=== PATIENT | male | born 1970 | race Hispanic/Latino ===

== ENCOUNTER 2019-08-04 22:27 | Inpatient (IN) ==
[2019-08-04 23:00] LABS: BASO# 0.04 X1000 (0.0-0.2); BASO% 0.4 % (0.0-0.8); EOS# 0.02 X1000 (0.0-0.7); EOS% 0.2 % (0.0-10.0); HEMATOCRIT 25.9 % (42.0-52.0); HEMOGLOBIN 8.6 g/dL (14.0-18.0); IMM GRAN# 0.18 X1000 (0.0-0.04); IMM GRAN% 1.8 % (0.0-0.5); LYMPH# 1.01 X1000 (1.2-3.4); LYMPH% 9.9 % (20.5-51.1); MCHC 33.2 g/dL (33-37); MCV 90.2 FL (81-99); MONO# 2.46 X1000 (0.11-0.59); MONO% 24.1 % (1.7-9.3); MPV 10.4 FL (7.4-10.4); NEUT% 63.6 % (42.2-75.2); PLT 183 X1000 (130-400); RBC 2.87 XMIL (4.7-6.1); RDW 17.8 % (11.5-14.5); WBC 10.21 X1000 (4.8-10.8)
[2019-08-04 23:01] LABS: BUN 5 mg/dL (8-22); CHLORIDE 77 mmol/L (98-107); MAGNESIUM 1.5 mg/dL (1.5-2.7); TCO2 17 mmol/L (25-35); TOTAL PROTEIN 7.3 g/dL (6.3-8.3)
[2019-08-04 23:08] LABS: URINE SOURCE CLEAN CATCH
[2019-08-04 23:11] LABS: BILIRUBIN URINE SMALL (NEGATIVE); BLOOD URINE NEGATIVE (NEGATIVE); COLOR YELLOW; GLUCOSE URINE NEGATIVE (NEGATIVE); KETONE URINE 20 mg/dL (NEGATIVE); LEUKOCYTES URINE NEGATIVE (NEGATIVE); NITRITE URINE NEGATIVE (NEGATIVE); PH URINE 6.5; PROTEIN URINE TRACE mg/dL (NEGATIVE); SP GRAVITY URINE 1.019; TURBIDITY URINE CLEAR (CLEAR); UROBILINOGEN URINE 6 mg/dL (NORMAL)
[2019-08-04 23:22] LABS: CK-MB 11.74 ng/mL (0.0-5.0)
[2019-08-04 23:44] LABS: AGAP 14; ALBUMIN 2.4 g/dL (3.5-5.0); ALKALINE PHOSPHATASE 94 U/L (32-122); CALCIUM 7.7 mg/dL (8.8-10.2); CK INDEX 4.6 (0.0-2.5); CK PROFILE 256 U/L (24-204); COSMO 218; CREATININE 0.2 mg/dL (0.7-1.2); ESTIMATED GFR > 60; GLUCOSE 122 mg/dL (70-104); GOT 128 U/L (10-34); GPT 38 U/L (10-44); POTASSIUM 3.9 mmol/L (3.5-5.1)
[2019-08-04 23:45] LABS: UR EPITHELIAL CELLS <10 /HPF (<10); URINE BACTERIA 2+ /HPF; URINE CASTS GRANULAR PRESENT; URINE CRYSTALS CA OXALATE PRESENT; URINE SMALL ROUND CELLS NONE SEEN; URINE WBC <10 /HPF (<10); URINE YEAST NONE SEEN
--- NOTE | 2019-08-05 00:10 | EKG Report ---
Test Performed on : 08/04/2019 10:21:58 PM Test Reason : emboli Blood Pressure : / mmHG Vent. Rate : 097 BPM Atrial Rate : 097 BPM P-R Int : 178 ms QRS Dur : 078 ms QT Int : 368 ms P-R-T Axes : 049 013 007 degrees QTc Int : 467 ms Normal sinus rhythm. Normal ECG No previous ECGs available Unconfirmed Result
[2019-08-05] MEDS ORDERED: LASIX PO ONE (00:14)
[2019-08-05 00:22] LABS: SODIUM 108 mmol/L (136-145)
--- NOTE | 2019-08-05 00:26 | PROVIDER DOCUMENTATION ---
This chart was entered by Carole Mcpherson Scribe, acting as scribe for Dandy Norwood MD. HPI-General Adult - General Stated Complaint: SOB Time Seen by Provider: 08/04/19 22:05 Source: patient, EMS Allergies/Adverse Reactions: Patient Allergies Allergy/AdvReac Type Severity Reaction Status Date / Time No Known Allergies Allergy Verified 04/19/14 09:02 Home Medications: Home Medication List Medication Instructions Recorded Confirmed Last Taken Type NK [No Home Medications] 08/04/19 08/04/19 Unknown History - History of Present Illness -Gen Adult Nature of Presenting Problems: pt is a 49 yohm c/o sob and poor appetite for 2 weeks, chronic LE edema and umbilical hernia becoming worse last few days. pt has hx alcoholism, drinks 6 or more beers daily, no hard liquor. pt also c/o left eye matted. denies IA, CKD, DM and hep B & C. no o2 at home. pt is morbidly obese. denies smoking. denies diarrhea, fever and chills. pt is jaundice in room. Severity: reports: moderate Onset/Duration: reports: other (2 weeks sob and poor appetite, chronic LE edema and umbilical hernia becoming worse last few days and L eye matted unk amt of time) Timing: reports: still present Context/Activities at Onset: reports: none Modifying Factors: improves with: nothing Associated Symptoms: reports: cough, loss of appetite, shortness of breath, swelling/mass in abdomen (umbilical hernia), other (left eye matted). denies: diarrhea, fever/chills, vomiting Review of Systems - Adult - REVIEW OF SYSTEMS - ADULT Constitutional: reports: no symptoms reported. denies: fever, fatique, night sweats Eyes: reports: see HPI, discharge (left eye matted). denies: decreased vision, blurred vision, double vision Ears, Nose, Mouth & Throat: reports: no symptoms reported Cardiovascular: reports: no symptoms reported Respiratory: reports: see HPI, cough, shortness of breath. denies: dyspnea on exertion, excessive sputum production, hemoptysis Gastrointestinal: reports: see HPI, poor appetite, other (umb hernia becoming larger). denies: diarrhea, nausea, vomiting Genitourinary: reports: no symptoms reported Musculoskeletal: reports: see HPI, joint swelling (chronic bilat LE edema becoming worse last few days). denies: frequent leg cramps, joint pain, muscle weakness Integumentary: reports: no symptoms reported Neurological: reports: no symptoms reported Psychiatric: reports: no symptoms reported Endocrine: reports: no symptoms reported Hematologic/Lymphatic: reports: no symptoms reported Allergic/Immunologic: reports: no symptoms reported All Other Systems: Reviewed and Negative Past History - Adult - PAST MEDICAL HISTORY-ADULT Review of Records: reports: Nursing Assessment Review, Medications Reviewed, Social history reviewed & non-contributory. Major Childhood Illnesses: reports: denies history Cardiovascular: reports: hyperlipidemia Respiratory: reports: denies history Gastrointestinal: reports: denies history Obstetrical/Gynecological: reports: denies history Genitourinary: reports: denies history Musculoskeletal: reports: other (gout) Neurological: reports: denies history Endocrine/Immune: reports: denies history Other Conditions: reports: denies history - PRIOR SURGERIES/PROCEDURES Surgical/Procedure History: reports: other - IMMUNIZATION STATUS Childhood Immunizations: See Nurse Assessment Flu Vaccine: See Nurse Assessment - FAMILY HISTORY Family History: reviewed, not pertinent - SOCIAL HISTORY Smoking: non-smoker Substance Use: alcohol Alcohol Use Frequency: every day Number of drinks per typical drinking period:: 5-10 drinks Physical Exam-General - PHYSICAL EXAM-ADULT Initial Vital Signs Reviewed: Yes - CONSTITUTIONAL General Appearance: alert, no apparent distress, obese (morbidly). negative: cachetic, lethargic, slow to respond - EYES Eyes: PERRL/EOMI, subconjunctival hemorrhage (rt eye), other (matted left eye) - HEAD, EARS, NOSE, MOUTH & THROAT HENMT: normocephalic/atraumatic, dental decay. negative: moist mucous membranes (dry muc mems) - NECK Neck: non-tender, full range of motion, supple, normal inspection - RESPIRATORY Respiratory: chest non-tender, lungs clear, normal breath sounds, no pleuratic chest pain, no respiratory distress, no accessory muscle use. negative: respiratory distress, decreased breath sounds, accessory muscle use, wheezing - CARDIOVASCULAR Cardiovascular: normal peripheral pulses, regular rate, rhythm - GASTROINTESTINAL (ABDOMEN) Abdominal Exam: normal bowel sounds, non tender, soft, no organomegaly, no pulsatile mass, hernia (large umbilical hernia). negative: abnormal bowel sounds, distended, guarding - MUSCULOSKELETAL Back Exam: normal inspection Extremity: normal range of motion, non-tender, no calf tenderness, normal capillary refill, pelvis stable, swelling (chronic bilat LE edema). negative: normal inspection, deformity, erythema, tenderness - SKIN Integumentary: normal turgor, warm/dry, jaundice, petechiae (on face), other (bruises on bilat UE). negative: normal color, erythema, rash - NEUROLOGIC Neurologic: grossly normal, no motor/sensory deficits - PSYCHIATRIC Psych/Mental Status: normal mood/affect, normal thought content, normal thought process, oriented x 3 Progress - PLAN OF CARE/RESULTS Result Diagrams: 08/04/19 22:24 08/04/19 22:24 - EKG 1 Time of EKG reading by physician:: 22:23 EKG Read and Signed by:: Dandy Norwood EKG Interpretation (*Must complete 3 of following elements*): Abnormal Rate: 96 Rhythm: NSR Dixon: normal QRS: normal FL Interval: normal ST Wave: normal Comments: cannot rule out inferior infarct, age undetermined - CONSULTS/PCP/HOSPITALIST Notification #1 *Consult/PCP/Hospitalist*: Luis Time Discussed: 23:55 Consult Disposition: Admit Departure - Departure Date of Disposition Decision: 08/05/19 Time of Disposition Decision: 00:06 DIAGNOSIS: Hypernatremia Liver failure Qualifiers: Liver failure chronicity: acute Hepatic coma status: without hepatic coma Qualified Code(s): K72.00 - Acute and subacute hepatic failure without coma Disposition: ADMITTED INPATIENT 09 Certified Medical Emergency: Emergent Condition: Stable Referrals and Follow-Ups: Doctor,Unassigned [Primary Care Provider] - - Critical Care Note This patient required my direct & personal management of CC.: Yes Total Time (mins): 30 Critical Care Statement: This patient required my direct personal management to treat or rule out processes, the absence of which, could potentiallly result in sudden, clinically significant life or limb threatening deterioration. Attestation - Physician/ TEVIN Attestation Patient care was provided by Advanced Practice Provider:: No The physician spent face to face time with patient:: Yes Advanced Practice Provider documentation review:: Supervising physician onsite and consulted in the evaluation and care of this patient. The physician did have a face to face encounter with the patient. This chart was documented by the indicated scribe, (Carole Mcpherson, [email or web address]) and accurately reflects the services I performed and decisions made by me, Dandy Conti MD, as attested by the provider's signature.
[2019-08-05] MEDS: LACTULOSE PO SCH ×4 (01:09→19:33)
[2019-08-05] MEDS ORDERED: NS 1,000 ML IV ONE (01:37)
[2019-08-05] MEDS ORDERED: ZOFRAN IV PRN (03:06)
[2019-08-05] MEDS ORDERED: NS 1,000 ML IV SCH (03:06)
--- NOTE | 2019-08-05 06:31 | Diag Imaging Result Doc PS360 ---
CHEST-PORTABLE - 08/04/2019 INDICATION: sob COMPARISON: None FINDINGS: There are some faint infiltrate or atelectasis in the left midlung and lung base. Heart size is normal. No pneumothorax or pleural effusion. IMPRESSION: Faint nonspecific infiltrate/atelectasis in the left midlung and lung base. Electronically signed by Stanley Saenz 08/05/2019 6:28 AM
[2019-08-05 06:35] LABS: BASO# 0.04 X1000 (0.0-0.2); BASO% 0.4 % (0.0-0.8); EOS# 0.02 X1000 (0.0-0.7); EOS% 0.2 % (0.0-10.0); HEMATOCRIT 24.6 % (42.0-52.0); HEMOGLOBIN 8.3 g/dL (14.0-18.0); IMM GRAN# 0.12 X1000 (0.0-0.04); IMM GRAN% 1.3 % (0.0-0.5); LYMPH# 1.09 X1000 (1.2-3.4); LYMPH% 12.1 % (20.5-51.1); MCH 30.7 PG (27-31); MCHC 33.7 g/dL (33-37); MCV 91.1 FL (81-99); MONO# 2.55 X1000 (0.11-0.59); MONO% 28.2 % (1.7-9.3); MPV 9.8 FL (7.4-10.4); NEUT# 5.21 X1000 (1.4-6.5); NEUT% 57.8 % (42.2-75.2); PLT 170 X1000 (130-400); RDW 17.5 % (11.5-14.5); WBC 9.03 X1000 (4.8-10.8)
[2019-08-05 06:44] LABS: INR 2.25; PROTIME 25.4 Seconds (11.0-16.0)
[2019-08-05 06:45] LABS: PTT 41.9 Seconds (22.3-41.8)
[2019-08-05 07:28] LABS: LYMPHS 12 % (21-51); MONO 16 % (1-9); SEGS 72 % (42-75)
[2019-08-05 07:35] LABS: AGAP 14; ALB/GLOB RATIO 0.5; ALBUMIN 2.3 g/dL (3.5-5.0); ALKALINE PHOSPHATASE 87 U/L (32-122); BUN 6 mg/dL (8-22); CALCIUM 7.7 mg/dL (8.8-10.2); CHLORIDE 78 mmol/L (98-107); COSMO 220; CREATININE 0.4 mg/dL (0.7-1.2); ESTIMATED GFR > 60; GLUCOSE 107 mg/dL (70-104); GOT 123 U/L (10-34); GPT 37 U/L (10-44); IRON SATURATION 46 %; MAGNESIUM 1.5 mg/dL (1.5-2.7); POTASSIUM 3.9 mmol/L (3.5-5.1); TCO2 17 mmol/L (25-35); TIBC 168 ug/dL; TOTAL BILIRUBIN 10.05 mg/dL (0.20-1.00); TOTAL IRON 78 ug/dL (53-167); UNBOUND IRON 90 ug/dL (112-346)
[2019-08-05 07:37] LABS: SODIUM 109 mmol/L (136-145)
--- NOTE | 2019-08-05 07:38 | HISTORY AND PHYSICAL ---
PRIMARY CARE PROVIDER: None. CHIEF COMPLAINT: Does not remember. HISTORY OF PRESENT ILLNESS: Mr. Delacruz is a 49-year-old gentleman, who carries a past medical history of hyperlipidemia, morbid obesity, alcohol abuse, umbilical hernia, gout, and GERD, who was brought to [facility] via EMS for shortness of breath, poor appetite for 2 weeks, and chronic lower extremity edema and an umbilical hernia that has become worse over the last few day. He drinks 10 to 12 beers per day, has done so for more than 20 years. He reports that his left eye has been matted for greater than 8 months. He does have a jaundice appearance. He is edematous from his lower extremities up to the top of his abdomen. Workup at [facility] ED showed some anemia, severe hyponatremia 108, hypochloridemia, hypocalcemia, and T bilirubin of 9, AST of 128, ammonia level of 81 and an albumin of 2.4. He was transferred over to [facility] ICU for higher level of care for his hyponatremia as well as alcoholic liver failure. The patient is currently alert and oriented times three, could not exactly give me the correct year, but he does know his name. He knows his date of and he knows his at the bedside. He knows he is in [place] at [facility]. He is being admitted for further treatment and evaluation. PAST MEDICAL HISTORY: Hyperlipidemia, gout, GERD, morbid obesity with a body mass index of 62.7, alcoholism, umbilical hernia. PAST SURGICAL HISTORY: Nose surgery, some type of testicle surgery so he could have children. ALLERGIES: No known drug allergies. HOME MEDICATION: He reports just occasional goyo-sce-liebikg headache medicines. SOCIAL HISTORY: He is , at bedside. He drinks 10 to 12 beers per day and has done so for 20 years. No illicit drug use. No marijuana. No tobacco. No vaping. FAMILY HISTORY: Denies any coronary disease. No diabetes. No cancer. Brother with high cholesterol as well. REVIEW OF SYSTEMS: He denies any chest pain or shortness of breath; however, he does seem like he is having an issue with breathing. However, he is oxygenating well on room air. He does not know if he has had any fever or chills. No dysuria or frequency. No nausea, vomiting, or diarrhea. However, when he initially came in, his chief complaint was shortness of breath, chronic lower extremity edema, umbilical hernia, and poor appetite as well as left matted eye. PHYSICAL EXAMINATION: VITAL SIGNS: Temperature is 98 degrees, heart rate 100, respirations 18, blood pressure 119/73, O2 is 99% on room air. GENERAL: Mr. Delacruz is a 49-year-old male who is lying in the bed in no acute distress. HEENT: Atraumatic, normocephalic. PERRL, his left eye is matted. Does have a jaundice appearance. NECK: Thick. CARDIOVASCULAR: S1, S2 appreciated. No murmurs, gallops, rubs noted. RESPIRATORY: Lung sounds clear bilaterally, decreased in the bases. GI: Did appreciate pitting edema from the top of the belly around to flanks. He is sore around his umbilical hernia. He denies any right upper quadrant pain. Quiet bowel sounds. : He is draining tea-colored urine from his Archer. EXTREMITIES: Pitting edema up all the way to the top of his abdomen and flanks. SKIN: Jaundice NEUROLOGIC: The patient is awake. He is alert. He knows his name and date of . He knows the city. He knows his . He knows he is in the hospital. He did not recall the current year exactly. He did not remember what brought him to the hospital. Did not appreciate any focal deficits. LABORATORY DATA: White count 10, hemoglobin and hematocrit 8 and 25, platelet count is 183,000. PTT was 42.5. Sodium was 108, recheck 108, potassium 3.9, chloride 77, carbon dioxide 17, anion gap of 14, BUN 5, creatinine 0.2, blood glucose is 122, calcium 7.7, magnesium 1.5, total bilirubin 0.8, AST 128, ALT 38. Ammonia level was 81. CK 226, CKI 4.6, CK-MB 11.74. Troponin was 24. ProBNP 316, albumin 2.4. ASSESSMENT AND PLAN: 1. Acute alcoholic hepatitis. We will send off a hepatitis profile. We will check a right upper quadrant ultrasound. We will consult GI. The patient does appear jaundiced. He also is edematous from his bilateral lower extremities up to the top of his abdomen around to the backs of his flank. We will continue to trend his liver enzymes daily. Daily PT and INR. 2. Severe hyponatremia secondary to consumption of his beer intake. We will gently hydrate him and check serial sodium levels. 3. Elevated ammonia level. We will continue with lactulose q.6 hours. 4. Hypochloridemia. We will continue with gentle intravenous hydration. 5. Clinical dehydration with third spacing. We will continue gentle hydration with IV fluids, needs albumin infusions. 6. Protein calorie malnutrition. The patient's albumin was 2.4, possibly go ahead initiate him on some IV albumin and await GI/Renal recommendations. Reports decrease in appetite. 7. Anemia. We will check anemia profile. Hemodynamically stable. Did not see any signs of bleeding at this time. 8. Alcohol use and abuse. We will watch the patient closely for withdrawal and DTs. We will place him on Ativan p.r.n. 9. Further recommendations to follow physician evaluation, laboratory and diagnostic data. Dictated by ORQUIDEA Vasquez for Ras Castaneda MD I have performed a face to face diagnostic evaluation. Labs/ Xrays- reviewed. Exam- Chest clear, CV- regular, Abd- obese. A/P- Suspected alcoholic hepatitis, severe hyponatremia- Admit, lactulose, GI and Renal consult. cc: MD Ras Jackson MD MTDD
--- NOTE | 2019-08-05 07:42 | EKG Report ---
Test Performed on : 08/05/2019 06:46:19 AM Test Reason : follow up Blood Pressure : / mmHG Vent. Rate : 104 BPM Atrial Rate : 101 BPM P-R Int : 000 ms QRS Dur : 072 ms QT Int : 338 ms P-R-T Axes : 000 046 015 degrees QTc Int : 444 ms Accelerated Junctional rhythm. Low voltage QRS Abnormal ECG When compared with ECG of 04-AUG-2019 22:23, (Unconfirmed) Junctional rhythm. has replaced Sinus rhythm. Minimal criteria for Inferior infarct are no longer present Confirmed by Jose BAKER, Brendan Metcalf ([id number]) on 08/07/2019 7:28:25 AM
[2019-08-05] MEDS ORDERED: NACL 3% 100 ML IV ONE ×2 (08:16→12:08)
[2019-08-05] MEDS: ATIVAN IV PRN ×4 (08:25→23:49)
[2019-08-05] MEDS ORDERED: HALDOL IV ONE (08:27)
[2019-08-05] MEDS ORDERED: ALBUMIN 25% IV SCH (09:00)
--- NOTE | 2019-08-05 13:25 | PROVIDER PROGRESS NOTE ---
Progress Note Chief complaint: I was short of breath. HPI: Mr. Delacruz is a 49-year-old male With a past medical history of morbid obesity, hyperlipidemia, liver disease secondary to alcohol abuse, gout, and GERD. He was brought in to [facility] for shortness of breath, decreased intake x 2 weeks, increased edema to BLE, and a markedly increase is size to his umbilical hernia. His labs revealed a sodium of 108, Albumin of 2.4, t bilirubin of 9, AST of 128 and ammonia of 81. He was transferred to [facility] and given lactulose and Normal saline fluids. His ammonia today is up to 96 and his sodium is only 109. He can not tell me when he had his last drink but appears restless and observed fine tremors to his hands. He denies any chest pain, dizziness, blood in urine or stool, cough, post nasal drip, or orthopnea. Past medical history: hyperlipidemia, gout, Gerd, morbid obesity, alcohol abuse, liver disease, umbilical hernia. Past surgical history: nose surgery. Allergies: no known drug allergies Social history: speaks limited Albanian, he is and lives at home. He admits to drinking 10 to 12 beers per day. Denies any marijuana or illicit drug use or tobacco. Family history: noncontributory Home medications: none Review of systems: All pertinent positives listed in the above HPI Physical exam: temperature 98.7, pulse 98, respirations 18, blood pressure 113/77, O2 sat 100% on room air. General: Morbidly obese male in no acute distress but restless. HEENT: normocephalic, atraumatic, conjunctiva jaundice, pupils equal and reactive. Mucous membranes moist. Skin: Jaundice. Skin warm and dry. Multiple telangectasias. Neck: supple, 8cm JVD with hepatojugular reflux Cardiovascular: S1S2, regular rate and rhythm. No murmur or gallops. Respiratory: clear with equal air entry anteriorly. Abdomen: obese, slightly firm, nontender, nondistended. Large umbilical hernia that has pitting edema. Bowel sounds hypoactive. : non-inspected, reed in place with hansel urine. Extremities:3+ pitting edema that extends up his abdomen. Neurological: alert and oriented to person and place. Restless. Some questions he answers inappropriate. Labs: WBC 9.03, hemoglobin 8.3, hematocrit 24.6, platelet count 170, sodium 110, potassium 3.9, chloride 78, carbon dioxide 17, BUN six, creatinine 0.4, total Bilirubin 10.05, AST 123, AL T 37, ammonia 96, albumin 2.3, urine osmolality 202, random sodium less than 10. Imaging: Chest x-ray impression faint nonspecific infiltrate/atelectasis in the left mid long and lung base. Assessment and plan: Hyponatremia. We gave 100ml 3% NS and rechecked his sodium. It only came up to 110. We also ordered 3 doses of Albumin. We will give another 100ml 3% NS and recheck in 4 hours. Blood pressure. In target. Fluid volume. Expanded. Third spacing. Albumin ordered. Anemia. Stable. Acid base balance. Stable. Medication review.
[2019-08-05] MEDS ORDERED: NACL 3% 200 ML IV ONE (15:45)
--- NOTE | 2019-08-05 18:16 | Diag Imaging Result Doc PS360 ---
EXAM: US GB < RUQ (LIMITED) INDICATION: elevated LFTS COMPARISON: None. FINDINGS: This study is largely nondiagnostic due to body habitus and excess bowel gas. The gallbladder and common bile duct were obscured. Part of the liver is appreciated. It appears echogenic suggesting hepatic steatosis. Ascites is noted tracking around the liver. The portal vein is obscured. The pancreas is obscured. The aorta and IVC are obscured. The right kidney is obscured. IMPRESSION: 1.Largely nondiagnostic study for the reasons discussed above. 2.Ascites. 3.Suggestion of hepatic steatosis. Electronically signed by Chris Mcpherson 08/05/2019 6:14 PM
[2019-08-06] MEDS: LACTULOSE PO SCH ×4 (03:45→20:06)
[2019-08-06] MEDS: ATIVAN IV PRN ×3 (04:14→19:10)
--- NOTE | 2019-08-06 06:28 | PROGRESS NOTE ---
DATE: 08/06/2019 SUBJECTIVE: Patient is very sleepy according to nursing staff. He has been very restless last night so he has received so far during the last 12 hours 3 doses of Ativan. Upon my examination, he has calmed down and is sleepy. OBJECTIVE: Vital Signs: Temperature 98.1 degrees, heart rate 105, respiratory 25, blood pressure 121/80, and O2 saturation 100% on room air. General: This is a chronically ill-looking very jaundiced and morbidly obese 49-year-old male lying in bed in no acute distress. HEENT: Head is normocephalic and atraumatic. Icteric sclerae. Pale conjunctivae. Neck: No JVD noted. No carotid bruit. Cardiovascular: S1, S2 heard. Tachycardic. No murmurs, gallops, or rubs. Regular rate and rhythm. Respiratory: Coarse breath sounds noted and rhonchi noted in both pulmonary gutierres. Patient is not using any accessory muscles or having work of breathing. Abdomen is soft. Distended. Obese. Apparently, nontender to palpation. Bowel sounds present. No organomegaly. There is an umbilical hernia noted. Genitourinary: Archer catheter in place. Extremities: 2+ pitting edema noted in both lower extremities up to both thighs. Peripheral pulses present but faint. Neurological: The patient is sleepy. Apparently, as per nursing staff, he has been confused all night long. Moves 4 extremities spontaneously. LABORATORY DATA: Pending at time of my dictation. ASSESSMENT AND PLAN: 1. Acute alcoholic hepatitis. His discriminant function is 53.3 so at this point we are going to start methylprednisolone 40 mg IV daily. The abdominal ultrasound that we ordered yesterday because of his body habitus was not conclusive. At this point. We will continue with that medication. We will continue with Ativan just in case this patient goes into alcohol withdrawal. We are going to continue checking CMP daily including bilirubin, PT and INR. 2. Severe hyponatremia. The patient has received normal saline at 3%. His sodium is 112 today so it has increased 4 mEq since admission. We will see what this CMP showed this morning. Nephrology is helping us in the management of hyponatremia. 3. Hepatic encephalopathy. Patient is on lactulose q.6 hours, and we are going to add Rifaximin to his current treatment. 4. Protein-calorie malnutrition. Aware. We will continue to monitor. 5. Alcohol abuse. Patient was drinking between 14 to 20 cans of beer per day. At this point, he has risk of withdrawal so we will continue with Ativan p.r.n. 6. Anemia of chronic disease. Aware. Hemoglobin is stable. We will continue to monitor. 7. Disposition: Of course, this patient continues to be confused. He needs to stay in the intensive care unit. We will continue to monitor this patient closely. cc: Herberth Lora MD MTDD
[2019-08-06 06:29] LABS: INR 2.64; PROTIME 28.9 Seconds (11.0-16.0)
[2019-08-06 06:31] LABS: BASO# 0.04 X1000 (0.0-0.2); BASO% 0.5 % (0.0-0.8); EOS# 0.03 X1000 (0.0-0.7); EOS% 0.4 % (0.0-10.0); HEMATOCRIT 23.4 % (42.0-52.0); HEMOGLOBIN 7.6 g/dL (14.0-18.0); IMM GRAN# 0.07 X1000 (0.0-0.04); IMM GRAN% 0.9 % (0.0-0.5); LYMPH# 0.94 X1000 (1.2-3.4); LYMPH% 11.4 % (20.5-51.1); MCH 30.2 PG (27-31); MCHC 32.5 g/dL (33-37); MCV 92.9 FL (81-99); MONO# 1.98 X1000 (0.11-0.59); MONO% 24.1 % (1.7-9.3); MPV 9.7 FL (7.4-10.4); NEUT# 5.17 X1000 (1.4-6.5); NEUT% 62.7 % (42.2-75.2); PLT 135 X1000 (130-400); RBC 2.52 XMIL (4.7-6.1); WBC 8.23 X1000 (4.8-10.8)
[2019-08-06] MEDS: SODIUM CHLORIDE 0.9% INJ SCH ×2 (06:43→17:38)
[2019-08-06] MEDS: SOLU-MEDROL IV SCH (06:43)
[2019-08-06] MEDS: ZOSYN 3.375 GM in NS 50 ML IV SCH ×4 (06:43→23:36)
[2019-08-06] MEDS: PROTONIX IV SCH ×2 (06:43→17:37)
[2019-08-06 07:01] LABS: AGAP 11; ALB/GLOB RATIO 0.6; ALBUMIN 2.4 g/dL (3.5-5.0); ALKALINE PHOSPHATASE 76 U/L (32-122); BUN 8 mg/dL (8-22); CALCIUM 7.6 mg/dL (8.8-10.2); CHLORIDE 81 mmol/L (98-107); COSMO 226; CREATININE 0.5 mg/dL (0.7-1.2); ESTIMATED GFR > 60; GLUCOSE 107 mg/dL (70-104); GOT 116 U/L (10-34); GPT 36 U/L (10-44); POTASSIUM 3.6 mmol/L (3.5-5.1); TCO2 20 mmol/L (25-35); TOTAL BILIRUBIN 11.22 mg/dL (0.20-1.00); TOTAL PROTEIN 6.5 g/dL (6.3-8.3)
[2019-08-06 07:14] LABS: SODIUM 112 mmol/L (136-145)
--- NOTE | 2019-08-06 07:43 | Diag Imaging Result Doc PS360 ---
CHEST-PORTABLE - 08/06/2019 INDICATION: follow up COMPARISON: 08/04/2019 FINDINGS: Lung volumes remain severely low. There is stable faint nonspecific infiltrate or atelectasis in the left lung base. IMPRESSION: No change from prior. Electronically signed by Stanley Saenz 08/06/2019 7:41 AM
[2019-08-06] MEDS ORDERED: LASIX IV ONE (08:54)
[2019-08-06] MEDS: ALBUMIN 25% IV SCH ×2 (09:34→21:32)
[2019-08-06] MEDS: XIFAXAN PO SCH ×2 (09:39→21:27)
[2019-08-06] MEDS: DUONEB (A & A) INH SCH ×3 (10:30→21:29)
--- NOTE | 2019-08-06 15:06 | PROVIDER PROGRESS NOTE ---
Progress Note Subjective: unable to arouse to verbal or tactile stimuli. A total of 10mg given of Ativan for agitation. Brother at bedside and updated on plan of care. Objective: temperature 98.3, pulse 94, respirations 24, blood pressure 109/64, 02 sat 94% on room air. General: Morbidly obese male lying in bed unable to arouse. HEENT: normocephalic, atraumatic, conjunctiva jaundice, pupils equal and sluggishly reactive. Purple to drainage to both eyes. Mucous membranes moist. Skin: Jaundice. Skin warm and dry. Neck: supple, 8cm JVD with hepatojugular reflux Cardiovascular: S1S2, regular rate and rhythm. No murmur or gallops. Respiratory: coarse rhonchi and crackles throughout anteriorly. Abdomen: obese, slightly firm, nontender, nondistended. Large umbilical hernia that has pitting edema. Bowel sounds hypoactive. : non-inspected, reed in place with hansel urine. Extremities:3+ pitting edema that extends up his abdomen. Neurological: obtunded Labs: WBC 8.23, hemoglobin 7.6, hematocrit 23.4, platelet count 135, sodium 112, potassium 3.6, chloride 81, carbon dioxide 20, anion gap 11, BUN eight, creatinine 0.5, total Bilirubin 11.22. Intake 800, output 1100. Impression: Hyponatremia. He has had 300ml of 3% normal saline and 2 doses of Albumin. Current Sodium level 112. We will increase dose of Albumin and give a now dose of lasix. Stat Sodium ordered as well as q4 hours x 4. Blood pressure. In target. Fluid volume. Expanded. Albumin and lasix in place. Anemia. Stable. Acid base balance. Stable. Ambulation. Unable to evaluate due to cognitive status. Medication review.
--- NOTE | 2019-08-06 15:12 | Diag Imaging Result Doc PS360 ---
CHEST-PORTABLE - 08/06/2019 3:01 PM INDICATION: NG tube placement COMPARISON: 5:35 AM FINDINGS: There is a nasogastric tube in good position in the stomach. Lung volumes remain critically low. IMPRESSION: Nasogastric tube in good position in the stomach. Electronically signed by Stanley Saenz 08/06/2019 3:10 PM
[2019-08-07] MEDS: ATIVAN IV PRN ×3 (00:17→21:13)
[2019-08-07] MEDS: LACTULOSE PO SCH ×4 (01:50→21:13)
[2019-08-07] MEDS: DUONEB (A & A) INH SCH ×4 (03:50→22:16)
[2019-08-07] MEDS: ZOSYN 3.375 GM in NS 50 ML IV SCH ×3 (06:03→18:27)
[2019-08-07] MEDS: SOLU-MEDROL IV SCH (06:03)
--- NOTE | 2019-08-07 06:18 | PROGRESS NOTE ---
DATE: 08/07/2019 SUBJECTIVE: The patient continues to be sleepy. He continues to be restless. He has been receiving Ativan. Yesterday we place an NG tube because his abdominal distention which initially was draining bilious content but last night started coming out frankly bloody secretions. OBJECTIVE: Vital Signs: Temperature 98.5 degrees, heart rate 101, respiratory rate 22, blood pressure 113/76, O2 saturation 91% on room air. General: This is a chronically ill looking, very jaundiced and morbidly obese, 49-year-old male, lying in bed, in no acute distress. HEENT: Head is normocephalic, atraumatic. Very icteric sclerae and pale conjunctivae. Neck: No JVD noted. No carotid bruits. Cardiovascular: S1, S2 heard. Tachycardic but no murmurs, gallops, or rubs noted. Respiratory: Coarse breath sounds noted and rhonchi in both pulmonary gutierres anteriorly and posteriorly. Patient is not using any accessory muscles or having work of breathing. Abdomen: Soft, more distended, obese. There is an umbilical hernia noted that. Apparently is nontender to palpation. No signs of peritoneal irritation. Genitourinary: Archer catheter in place. Hydrocele noted. Extremities: 2+ pitting edema noted in both lower extremities up to both thighs, unchanged in comparing with yesterday. Peripheral pulses present in both legs but faint. Neurological: Patient continues to be sleepy. He continues to be confused but moves 4 extremities spontaneously. LABORATORY DATA: Pending at the time of dictation. ASSESSMENT AND PLAN: 1. Acute alcoholic hepatitis. Unfortunately, his liver function tests continue to get worse. Bilirubin has been trending up slowly, 9.8 at admission and today is 11.22 and INR the day before yesterday was 2.2 and yesterday 2.6. Result of labs are still pending. At this point, we will continue with IV steroids, in this case methylprednisolone 40 mg IV daily. We will continue also with Protonix that initially we placed him q.24 hours but considering his bloody secretions coming out from the NG tube, we will change it to q.12 hours. 2. Gastrointestinal bleeding. Yesterday we were able to place an NG tube because of abdominal distention that initially was draining bilious secretions but now is getting bloody secretions. At this point, we will pass that information to Gastroenterology to if see this patient is a candidate for any upper endoscopy. We do not have the results of the CBC and CMP and INR but will transfuse if hemoglobin is 7 or below. 3. Severe hyponatremia. His sodium is trending up slowly. Last sodium that we have is 117 at 7:30 p.m. yesterday. Nephrology has been asked to manage this problem, help appreciated. 4. Hepatic encephalopathy. Patient continues to be on lactulose and we will also continue with rifaximin as well. 5. Protein-calorie malnutrition. Aware. We will continue to monitor at this point but if he continues to be altered, probably will need to start some Clinimix on him. 6. Alcohol abuse. The patient was drinking between 20 and 30 cans of beer per day during the last 7 years. He is at high risk of alcohol withdrawal. We will continue with Ativan p.r.n. at this point. 7. Anemia of chronic disease. As we mentioned above, possible gastrointestinal bleeding. We will see what Gastroenterology has to say. 8. Disposition. The patient continues to be critically ill. We will continue to monitor this patient in the intensive care unit. cc: Herberth Lora MD
[2019-08-07] MEDS: SODIUM CHLORIDE 0.9% INJ SCH ×2 (06:46→18:27)
[2019-08-07] MEDS: PROTONIX IV SCH ×2 (06:46→18:26)
[2019-08-07 07:05] LABS: AGAP 11; ALB/GLOB RATIO 0.8; ALBUMIN 2.8 g/dL (3.5-5.0); ALKALINE PHOSPHATASE 66 U/L (32-122); BUN 9 mg/dL (8-22); CALCIUM 8.6 mg/dL (8.8-10.2); CHLORIDE 86 mmol/L (98-107); COSMO 239; CREATININE 0.5 mg/dL (0.7-1.2); ESTIMATED GFR > 60; GLUCOSE 133 mg/dL (70-104); GOT 99 U/L (10-34); GPT 34 U/L (10-44); INR 3.21; POTASSIUM 3.8 mmol/L (3.5-5.1); PROTIME 33.8 Seconds (11.0-16.0); TCO2 21 mmol/L (25-35); TOTAL BILIRUBIN 11.32 mg/dL (0.20-1.00); TOTAL PROTEIN 6.5 g/dL (6.3-8.3)
[2019-08-07 07:07] LABS: SODIUM 118 mmol/L (136-145)
[2019-08-07 07:11] LABS: BASO# 0.01 X1000 (0.0-0.2); BASO% 0.1 % (0.0-0.8); EOS# 0.01 X1000 (0.0-0.7); EOS% 0.1 % (0.0-10.0); HEMATOCRIT 23.7 % (42.0-52.0); HEMOGLOBIN 7.7 g/dL (14.0-18.0); LYMPH# 0.68 X1000 (1.2-3.4); LYMPH% 9.8 % (20.5-51.1); MCH 31.7 PG (27-31); MCHC 32.5 g/dL (33-37); MCV 97.5 FL (81-99); MONO% 18.7 % (1.7-9.3); MPV 9.5 FL (7.4-10.4); NEUT# 4.95 X1000 (1.4-6.5); NEUT% 71.3 % (42.2-75.2); PLT 129 X1000 (130-400); RBC 2.43 XMIL (4.7-6.1); RDW 18.8 % (11.5-14.5); WBC 6.95 X1000 (4.8-10.8)
[2019-08-07 07:48] LABS: BANDS 2 % (0-1); LYMPHS 6 % (21-51); MONO 4 % (1-9); NRBC 2 % (0-0); SEGS 85 % (42-75)
[2019-08-07] MEDS ORDERED: PROTONIX IV SCH (09:00)
[2019-08-07] MEDS: ALBUMIN 25% IV SCH ×2 (09:27→20:14)
[2019-08-07] MEDS: XIFAXAN PO SCH ×2 (09:27→21:13)
--- NOTE | 2019-08-07 10:45 | Diag Imaging Result Doc PS360 ---
CT ABDOMEN/PELVIS W/O CONTRAST - 08/07/2019 INDICATION: abdominal distension, gi bleed COMPARISON: None FINDINGS: There is a nasogastric tube in good position in the stomach. There is cardiomegaly and pulmonary edema in the lung bases. There is severe flank edema. The liver is very atrophic and nodular compatible with severe cirrhosis. There is some dense material in the gallbladder likely excreted contrast. Spleen size is top normal. Other abdominal organs are all normal. There is a large ventral hernia at the anterior pelvic body wall containing omentum and fluid. The segments down to below the proximal. There is a small amount of ascites. Archer catheter in the urinary bladder. Rectum is normal. There are moderate degenerative changes of the spine. No acute or suspicious bony lesion. IMPRESSION: 1. Cirrhosis. Trace ascites. Body wall edema. 2. Cardiomegaly and pulmonary edema. 3. Large fat-containing ventral hernia at the lower pelvis. This exam was performed using automated exposure control, adjustment of mA or kV according to patient size, and/or use of iterative reconstruction technique Electronically signed by Stanley Saenz 08/07/2019 10:43 AM
[2019-08-07 11:36] LABS: HEPATITIS PROFILE ACUTE SEE COMMENTS
--- NOTE | 2019-08-07 12:52 | PROVIDER PROGRESS NOTE ---
Progress Note Subjective: he is able to open his eyes to tactile stimuli. He is unable to follow commands. Objective: temperature 98.5, pulse 113, respirations 34, blood pressure 134/58, 02 sat 94% on room air. General: Morbidly obese male lying in bed in no acute distress. HEENT: normocephalic, atraumatic, conjunctiva jaundice, pupils equal and s luggishly reactive. Purple to drainage to both eyes. Mucous membranes moist. Skin: Jaundice. Skin warm and dry. Neck: supple, JVD unobserved due to body habitus Cardiovascular: distant. S1S2, regular rate and rhythm. No murmur or gallops. Respiratory: Scattered wheezing and rhonchi throughout anteriorly. Improved from yesterday. Abdomen: obese, slightly firm, nontender, nondistended. Large umbilical hernia that has pitting edema. Bowel sounds hypoactive. : non-inspected, reed in place with hansel urine. Extremities:3+ pitting edema. Better than yesterday. Neurological: unable to assess. Does not follow commands but is moaning to tactile stimuli. Labs: WBC 6.95, hemoglobin 7.7, hematocrit 23.7, platelet count 129, sodium 118, potassium 3.8, chloride 86, carbon dioxide 21, BUN nine, creatinine 0.5, albumin 2.8, intake for 80, output 6100. Impression: Hyponatremia. Improved. Sodium 118. His neurological status is slightly improved. Albumin remains in place. Urine production is excellent. Blood pressure. In target. Fluid volume. Expanded, but improved. Albumin remains in place. Anemia. Stable. Acid base balance. Stable. Ambulation. Unable to evaluate due to cognitive status. Medication review.
[2019-08-07] MEDS ORDERED: BLISTEX MEDICATED BERRY LIP BALM TOP PRN (13:07)
--- NOTE | 2019-08-07 20:23 | GASTROENTEROLOGY PROGRESS NOTE ---
DATE: 08/07/2019 SUBJECTIVE: At the time of my rounds, he was not responsive to stimulus. He had O2 by mask in place. He had NG tube that was currently clamped for medication. OBJECTIVE: Vital Signs: Temperature 98.5 degrees, pulse 110, respirations 25, blood pressure 107/65. General: As noted, patient did not respond to my stimulus at the time of my rounds in the morningtime. LABORATORY: Hematology: WBC 6.95, hemoglobin 7.7, hematocrit 23.7, MCV 97.5, platelets 129,000. Coagulation: Pro-time 33.8, INR 3.21. chemistry: Sodium 126, potassium 3.8, chloride 86, CO2 21, BUN 9, creatinine 0.5, glucose 133. ASSESSMENT AND PLAN: 1. Hepatic encephalopathy. Patient did not respond at the time of my visit. 2. Acute alcoholic hepatitis. Continue to monitor his lab work. 3. Questionable gastrointestinal bleed. Continue to monitor. 4. Alcohol abuse. Once awake and alert, patient will be counseled on alcohol cessation. 5. We will continue to follow during his hospital course. Further plans will be made as needed. Patient was also seen by Dr. Bahena. Dictated by ORQUIDEA Toussaint for Mason Bahena MD cc: ORQUIDEA Raygoza MD
--- NOTE | 2019-08-07 20:29 | GASTROENTEROLOGY PROGRESS NOTE ---
DATE: 08/07/2019 Patient continues to be unresponsive to questions. He is restless and remains sedated. He was admitted to hospital with alcoholic hepatitis and was in hepatic encephalopathy. During his stay, he has been found to have coffee-ground material in his NG drain. He has shown some drop in his hemoglobin and hematocrit. He has not had any melena or bright red blood per rectum. His H and H did drop from 8.6 to 7.6 yesterday, but today it is stable at 7.7. His BUN is 9 with creatinine 0.5. His [*]index is very high. His hyponatremia is improving but still not normal. His last sodium was 126. At this point, he does have some evidence of GI bleed, which appears to be a slow bleed. He is holding his H and H. I would continue him on PPI and continue to observe. Continue to check H and H, transfuse if necessary. In the meantime, I will reserve endoscopy for therapeutic measure considering the fact that he is very high risk now; however, if he starts bleeding actively and hemorrhages out then we would proceed with EGD for again therapeutic purposes. cc: Mason Bahena MD
--- NOTE | 2019-08-07 20:30 | Diag Imaging Result Doc PS360 ---
EXAM: CHEST-PORTABLE - 08/07/2019 HISTORY: ng placement TECHNIQUE: Exam for nasogastric tube placement COMPARISON: 08/06/2019 FINDINGS: The tip of the nasogastric tube is at the expected location of the proximal to mid stomach. IMPRESSION: Nasogastric tube extending to proximal to mid stomach. Electronically signed by Korey Richard 08/07/2019 8:27 PM
[2019-08-08] MEDS: ZOSYN 3.375 GM in NS 50 ML IV SCH ×5 (00:36→23:50)
[2019-08-08] MEDS: LACTULOSE PO SCH ×4 (02:39→20:35)
[2019-08-08] MEDS: DUONEB (A & A) INH SCH ×4 (03:50→21:40)
[2019-08-08] MEDS ORDERED: LASIX IV ONE (05:27)
--- NOTE | 2019-08-08 06:18 | PROGRESS NOTE ---
DATE: 08/08/2019 SUBJECTIVE: Patient according to nursing staff continues to be sleepy and restless although he did not receive the Ativan tonight. He pulled out his NG tube yesterday so we need to replace it. His drainage from the NG tube is becoming more bilious and definitely less bloody. OBJECTIVE: Vital Signs: Temperature 99.6 degrees, heart rate 108, respiratory rate 22, blood pressure 120/70, and O2 saturation 95% on 3 L nasal cannula. General: This is a chronically ill- looking very jaundiced and morbidly obese 49-year-old male lying in bed in no acute distress. HEENT: Head is normocephalic, atraumatic. Very icteric sclerae and pale conjunctivae. Neck: Not possible to evaluate JVD because of neck girth. No carotid bruits. No lymphadenopathy. Cardiovascular: S1, S2 heard. Tachycardic, but no murmurs, gallops, or rubs noted. Respiratory: Coarse breath sounds noted and rhonchi all over both pulmonary gutierres anteriorly. Unchanged compared with yesterday. Patient is not using any accessory muscles or having work of breathing. Abdomen: Soft. Distended. Obese. There is an umbilical hernia noted. Apparently, nontender to palpation. There are no signs of peritoneal irritation. Genitourinary: Archer catheter in place. Hydrocele noted. Extremities: There is 2 to 3 pitting edema noted in both lower extremities up to both height same in comparing with yesterday. Peripheral pulses present in both legs, but faint. Neurological: Patient continues to be sleepy. Does not answer my question, and continues to be confused. LABORATORY DATA: Pending at the time of my dictation. ASSESSMENT AND PLAN: 1. Acute alcoholic hepatitis. Unfortunately, his liver function tests continues to get worse since admission. Bilirubin on admission was 9.8 and from yesterday is 132. INR also was 2.2 on admission and yesterday was 3.21. At this point, we will continue to monitor this patient closely. I have informed the family about the poor prognosis of this patient basically with the brother. We will continue with methylprednisolone for his alcoholic hepatitis. In this case, methylprednisolone 40 mg IV daily. 2. Gastrointestinal bleeding. NG tube is draining definitely less bloody secretions. Hemoglobin has been maintaining above 7. I will have the results of the labs today. We will transfuse if needed. The patient is a high risk for any procedure according to GI. At this point, we will continue to monitor him closely. 3. Severe hyponatremia. Sodium extending up slowly. Yesterday was [address] Weinstein from Nephrology is managing this problem. His help is appreciated. We will see what the CMP shows today. 4. Hepatic encephalopathy. Patient continues to be on lactulose and on the rifaximin as well. The patient continues to be confused requiring Ativan p.r.n. 5. Protein-calorie malnutrition. Aware. At this point, I will start the Clinimix in this patient considering that he will not be able to eat by himself for awhile. 6. Alcohol abuse. As we mentioned before, patient has been drinking between 20 and 30 cans of beer per day. He is a high risk of alcohol withdrawal. He is confused, but does not look like he is going into withdrawals. At this point, we will continue with Ativan p.r.n. We may need to change to Ativan drip if symptoms of withdrawals are identified. 7. Anemia of chronic disease. As we mentioned above, we do not have the results of the hemoglobin this morning. We will continue to monitor. 8. Disposition: Patient continues to be critically ill. His liver function tests continues to get worse. We will continue to monitor this patient closely. 9. Prognosis overall very poor. cc: Herberth Lora MD
[2019-08-08] MEDS: PROTONIX IV SCH ×2 (06:25→17:24)
[2019-08-08] MEDS: SOLU-MEDROL IV SCH (06:25)
[2019-08-08 07:13] LABS: BASO# 0.05 X1000 (0.0-0.2); BASO% 0.6 % (0.0-0.8); EOS# 0.01 X1000 (0.0-0.7); EOS% 0.1 % (0.0-10.0); HEMATOCRIT 22.6 % (42.0-52.0); HEMOGLOBIN 7.1 g/dL (14.0-18.0); IMM GRAN# 0.17 X1000 (0.0-0.04); IMM GRAN% 2.1 % (0.0-0.5); LYMPH# 0.68 X1000 (1.2-3.4); LYMPH% 8.3 % (20.5-51.1); MCH 31.1 PG (27-31); MCHC 31.4 g/dL (33-37); MCV 99.1 FL (81-99); MONO# 2.03 X1000 (0.11-0.59); MONO% 24.7 % (1.7-9.3); MPV 9.5 FL (7.4-10.4); NEUT# 5.28 X1000 (1.4-6.5); NEUT% 64.2 % (42.2-75.2); PLT 133 X1000 (130-400); RBC 2.28 XMIL (4.7-6.1); RDW 19.6 % (11.5-14.5); WBC 8.22 X1000 (4.8-10.8)
[2019-08-08 07:14] LABS: INR 2.8; PROTIME 30.3 Seconds (11.0-16.0)
[2019-08-08 07:37] LABS: AGAP 11; ALB/GLOB RATIO 1.1; ALBUMIN 3.6 g/dL (3.5-5.0); ALKALINE PHOSPHATASE 66 U/L (32-122); BUN 9 mg/dL (8-22); CALCIUM 9.2 mg/dL (8.8-10.2); CHLORIDE 95 mmol/L (98-107); COSMO 265; CREATININE 0.6 mg/dL (0.7-1.2); ESTIMATED GFR > 60; GLUCOSE 134 mg/dL (70-104); GOT 110 U/L (10-34); GPT 39 U/L (10-44); POTASSIUM 3.9 mmol/L (3.5-5.1); SODIUM 132 mmol/L (136-145); TCO2 26 mmol/L (25-35); TOTAL BILIRUBIN 11.16 mg/dL (0.20-1.00); TOTAL PROTEIN 6.9 g/dL (6.3-8.3)
[2019-08-08] MEDS: CLINIMIX E 4.25%-5% SOLUTION 1,000 ML IV SCH ×2 (08:46→18:00)
[2019-08-08] MEDS: XIFAXAN PO SCH ×2 (08:46→20:35)
[2019-08-08] MEDS: LIPOSYN 20% 250 ML IV SCH (08:46)
[2019-08-08 08:58] LABS: BANDS 2 % (0-1); LYMPHS 8 % (21-51); MONO 28 % (1-9); SEGS 58 % (42-75)
[2019-08-08 08:59] LABS: ANISOCYTOSIS 1+; HYPOCHROM 1+; POIKILOCYTOSIS 1+
--- NOTE | 2019-08-08 18:00 | NEPHROLOGY PROGRESS NOTE ---
DATE: 08/08/2019 SUBJECTIVE: Patient resting in bed. No acute distress. OBJECTIVE: Vital Signs: Temperature 99.6 degrees, pulse 105, respiratory rate 21, blood pressure 125/72. Intake 760 mL. Output 7.2 L, and 6.7 of this was urine. General: Morbidly obese, [id number] gentleman resting in bed. HEENT: Normocephalic, atraumatic. Oral mucosa is moist. Neck: Supple. Unable to determine JVD. Trachea midline. Cardiovascular: Regular rate and rhythm with distant heart sounds. Pulmonary: Some rhonchi bilaterally. Abdomen: Morbidly obese. : Archer catheter with yellow urine. Extremities: He has chronic lymphedema and 3+ edema. Integumentary: Skin is warm and dry. Neurologic: Minimal interaction. Moaning. LAB DATA: WBC of 8.2, hemoglobin 7.1, sodium 128 (126, 118), creatinine 0.5. ASSESSMENT AND PLAN: 1. Hyponatremia. Continues to improve. Follow with some serial sodiums. He continues with some albumin, and urine output remains excellent. Creatinine is normal. 2. Electrolytes, acid-base balance. See above. 3. Fluid volume. No changes. Dictated by ORQUIDEA Judge for Cruz Weinstein MD cc: Cruz Weinstein MD
--- NOTE | 2019-08-08 19:14 | GASTROENTEROLOGY PROGRESS NOTE ---
DATE: 08/08/2019 SUBJECTIVE: The patient was also seen by Dr. Bahena. was at the bedside. Dr. Bahena spent a good amount of time going over the diagnosis and prognosis with the patient's through phone translation, answering her questions. The patient is currently still lethargic, sometimes restless. He had pulled his NG tube out, which will be replaced. There were noted bilious contents. OBJECTIVE: Vital Signs: Temperature 99.5, pulse 107, respirations 27, blood pressure 146/8.7. General: The patient was with eyes closed. He had oxygen by nasal cannula today. Oxygen saturation 92%. LABORATORY: Hematology: WBC 8.2, hemoglobin 7.1, hematocrit 22.6, MCV 99.1, platelets 133. Chemistry: Sodium 132, potassium 3.9, chloride 95, CO2 26, BUN 9, creatinine 0.6, glucose 134, total bilirubin 11.16. AST 110, ALT 39, alkaline phosphatase 66. ASSESSMENT: 1. Encephalopathy. 2. Alcoholic hepatitis. 3. Anemia. 4. Elevated bilirubin. 5. Gastrointestinal bleed. PLAN: We will continue supportive care. Monitor hemoglobin and hematocrit. Continue current medications. Dr. Bahena has spoken with the about plan and prognosis. Will continue to follow, and further plans will be made according to his progress. Again, the patient was seen by Dr. Bahena also. Dictated by ORQUIDEA Toussaint for Mason Bahena MD cc: ORQUIDEA Raygoza MD
[2019-08-08] MEDS ORDERED: NS 500 ML IV ONE (20:34)
[2019-08-08] MEDS: LASIX IV SCH (22:19)
[2019-08-09] MEDS: LACTULOSE PO SCH ×4 (02:26→20:59)
[2019-08-09] MEDS: DUONEB (A & A) INH SCH ×4 (03:18→21:11)
[2019-08-09] MEDS: CLINIMIX E 4.25%-5% SOLUTION 1,000 ML IV SCH ×2 (05:09→13:50)
[2019-08-09] MEDS: PROTONIX IV SCH ×2 (05:54→17:31)
[2019-08-09] MEDS: ZOSYN 3.375 GM in NS 50 ML IV SCH ×4 (05:54→23:59)
[2019-08-09] MEDS: SOLU-MEDROL IV SCH (05:54)
[2019-08-09 06:33] LABS: BASO# 0.09 X1000 (0.0-0.2); BASO% 0.9 % (0.0-0.8); HEMATOCRIT 29.7 % (42.0-52.0); HEMOGLOBIN 9.4 g/dL (14.0-18.0); IMM GRAN# 0.29 X1000 (0.0-0.04); IMM GRAN% 2.8 % (0.0-0.5); LYMPH# 0.84 X1000 (1.2-3.4); LYMPH% 8.1 % (20.5-51.1); MCH 31.8 PG (27-31); MCHC 31.6 g/dL (33-37); MCV 100.3 FL (81-99); MONO# 2.72 X1000 (0.11-0.59); MONO% 26.2 % (1.7-9.3); MPV 9.9 FL (7.4-10.4); NEUT# 6.44 X1000 (1.4-6.5); PLT 119 X1000 (130-400); RBC 2.96 XMIL (4.7-6.1); RDW 21.2 % (11.5-14.5); WBC 10.38 X1000 (4.8-10.8)
--- NOTE | 2019-08-09 06:38 | PROGRESS NOTE ---
DATE: 08/09/2019 SUBJECTIVE: The patient tends to be sleepy requiring Ativan IV. His drainage from the NG tube during the last 24 hours has been 500 mL. He has been receiving lactulose throughout the NG tube, but apparently is not going through. OBJECTIVE: Vital Signs: Temperature 98.2, heart rate 104, respiratory 25, blood pressure 128/82, O2 saturation 94% on 3 L nasal cannula. General Examination: This is a chronically ill-looking, very jaundiced and morbidly obese, 49-year-old male, lying in bed in no acute distress. HEENT: Head is normocephalic and atraumatic with anicteric sclerae and pale conjunctivae. Neck: Not possible to evaluate JVD because of neck girth. No carotid bruits. No lymphadenopathy. No thyromegaly. Cardiovascular Exam: S1, S2 heard. Tachycardic, but no murmurs, gallops, or rubs noted. Respiratory Exam: Continues to have coarse breath sounds noted and rhonchi all over both pulmonary gutierres anteriorly, unchanged in comparing with the last couple days. The patient is not using any accessory muscles or having work of breathing. Abdomen: Soft. Continues to be distended, obese. There is umbilical hernia noted. Abdomen is apparently nontender to palpation. No signs of peritoneal irritation. Genitourinary: Archer catheter in place. Hydrocele noted. Extremities: 2+ pitting edema in both lower extremities up to both thighs. The same in comparing with yesterday. Peripheral pulses present, but faint. Neurological Exam: Patient is noted to be sleepy, does not answer any questions. Does not follow commands. Moves 4 extremities spontaneously. LABORATORY DATA: Pending at the time of dictation. ASSESSMENT AND PLAN: 1. Acute alcoholic hepatitis. Labs from today are not available, but from yesterday the INR is better. From day before yesterday was 3.21, from yesterday 2.8. We will see what the lab shows today. He is receiving methylprednisolone 40 mg intravenous daily for this alcoholic hepatitis. We will continue with the same management. 2. Gastrointestinal bleeding. Apparently there has been no more bloody secretions for the last 48 hours. He is unfortunately not a candidate for any esophagogastroduodenoscopy at this point because the heart risk of anesthesia. Gastroenterology is following this patient. The hemoglobin from yesterday was 7.1, so we have ordered 2 units of blood. Labs are still pending. We will continue to monitor. 3. Severe hyponatremia. Sodium is getting better slowly. Yesterday, it was 132. Dr. Weinstein from Nephrology helping us in the management of this problem; help appreciated. 4. Hepatic encephalopathy. Patient is on lactulose and rifaximin as well. We will continue with the same management. He continues to be encephalopathic. 5. Protein-calorie malnutrition. We will continue with Clinimix and lipids. 6. Alcohol abuse. Patient used to drink between 20 and 30 cans of beer per day. He is a high risk of alcohol withdrawal. He is confused, but does not look like he is in withdrawals yet. We will continue with Ativan as needed. 7. Anemia of chronic disease. We will check hemoglobin after those 2 units of blood have been transfused. 8. Disposition: The patient continues to be critically ill. Liver function tests are not getting worse, though. We will continue to monitor this patient closely here in the intensive care unit. Mother, brother and cousin informed about the clinical situation of this patient today morning. cc: Herberth Lora MD
[2019-08-09] MEDS: LIPOSYN 20% 250 ML IV SCH (08:00)
[2019-08-09 08:11] LABS: BANDS 5 % (0-1); LYMPHS 9 % (21-51); MONO 18 % (1-9); NRBC 1 % (0-0); SEGS 65 % (42-75)
[2019-08-09 08:14] LABS: ANISOCYTOSIS 2+; HYPOCHROM 1+; POIKILOCYTOSIS 1+
[2019-08-09 08:30] LABS: INR 2.43
--- NOTE | 2019-08-09 08:54 | NEPHROLOGY PROGRESS NOTE ---
DATE: 08/09/2019 SUBJECTIVE: Patient minimally responsive. OBJECTIVE: Vital Signs: Temperature 98.2 degrees, pulse 105, respiratory rate 30, blood pressure 128/83. Intake 3.8, output 8.5 L. General: Chronically ill- appearing, obese gentleman, resting in bed. Minimally responsive. HEENT: Normocephalic, atraumatic. Oral mucosa dry. Neck: thick. trachea midline. Pulm: Clear. On O2 supplementation via nasal cannula. Cardiovascular: RRR. Abd, obese, Positive bowel sounds. : Archer catheter noted. Extremities: 4+ chronic plus pitting edema. Integ: Warm and dry. Labs: Sodium 132, creatinine 0.6 Assessment and Plan 1. Hyponatremia, resolved with diuresis. Continue to monitor. 2. Fluid Volume: He is approx 5 liters negative over last 24 hours. He continues with gross overload. Continue current therapy. Dictated by ORQUIDEA Judge for Cruz Weinstein MD cc: Cruz Weinstein MD [facility]
[2019-08-09 08:57] LABS: AGAP 11; ALBUMIN 3.4 g/dL (3.5-5.0); ALKALINE PHOSPHATASE 62 U/L (32-122); BUN 13 mg/dL (8-22); CALCIUM 9.1 mg/dL (8.8-10.2); CHLORIDE 92 mmol/L (98-107); COSMO 268; CREATININE 0.5 mg/dL (0.7-1.2); ESTIMATED GFR > 60; GLUCOSE 158 mg/dL (70-104); GOT 109 U/L (10-34); GPT 47 U/L (10-44); POTASSIUM 3.8 mmol/L (3.5-5.1); SODIUM 132 mmol/L (136-145); TCO2 29 mmol/L (25-35); TOTAL BILIRUBIN 10.46 mg/dL (0.20-1.00); TOTAL PROTEIN 6.9 g/dL (6.3-8.3)
[2019-08-09] MEDS: LASIX IV SCH ×2 (09:08→20:59)
[2019-08-09] MEDS: XIFAXAN PO SCH ×2 (09:09→20:59)
--- NOTE | 2019-08-09 10:37 | Diag Imaging Result Doc PS360 ---
EXAM: CHEST-PORTABLE INDICATION: dyspnea TECHNIQUE: One view COMPARISON: 08/06/2019 FINDINGS: The NG tube projects below the diaphragm and is assumed to be in the lumen of the stomach in the expected position. Lung volumes are low similar to previous studies. There is probably mild atelectasis at the lung bases that is essentially stable. No new consolidation is identified. Cardiac silhouette is stable. IMPRESSION: Essentially stable chest. Electronically signed by Chris Mcpherson 08/09/2019 10:34 AM
[2019-08-10] MEDS: LACTULOSE PO SCH ×4 (02:05→21:38)
[2019-08-10] MEDS: DUONEB (A & A) INH SCH ×4 (03:58→21:35)
[2019-08-10] MEDS: SOLU-MEDROL IV SCH (05:15)
[2019-08-10] MEDS: PROTONIX IV SCH ×2 (05:16→18:27)
[2019-08-10] MEDS: ZOSYN 3.375 GM in NS 50 ML IV SCH ×3 (05:17→18:28)
--- NOTE | 2019-08-10 05:55 | PROGRESS NOTE ---
DATE: 08/10/2019 SUBJECTIVE: As per nursing staff, the patient has been more sleepy during the last 12 hours and he did not receive any Ativan. He has been a little bit more tachypneic. Drainage from the NG to has being approximately 300 mL the last 12 hours as well. He continues to receive lactulose and rifaximin through the NG tube. OBJECTIVE: Vital Signs: Temperature 98.6 degrees, heart rate 104, respiratory rate 27, blood pressure 125/78, O2 saturation 95% on 4 L nasal cannula. General: This is a chronically ill- looking, very jaundiced, morbidly obese, 49-year-old male lying in bed, in no acute distress. HEENT: Head is normocephalic, atraumatic with very icteric sclerae and pale conjunctivae. Neck: Not possible to evaluate JVD because of the neck girth. No carotid bruits. No lymphadenopathy. No thyromegaly. Cardiovascular: S1, S2 heard. Tachycardic but no murmurs, gallops, or rubs noted. Respiratory: Continues to have coarse breath sounds all over both pulmonary gutierres as well as rhonchi. The patient is not using any accessory muscles or having work of breathing. Physical examination is basically the same in comparing with yesterday. Abdomen: Soft. Continues to be distended, obese. There is an umbilical hernia noted. Abdomen, apparently, is nontender to palpation. No signs of peritoneal irritation. Genitourinary: Archer catheter in place with yellowish urine. Hydrocele noted. Extremities: 2+ pitting edema in both lower extremities up to both thighs, same in comparing with yesterday. Peripheral pulses present but faint. Neurological: Patient is definitely much more sleepy; as we mentioned before, he did not receive any Ativan the last 12 hours. Of course, does not follow commands. LABORATORY DATA: Pending at time of dictation. ASSESSMENT AND PLAN: 1. Acute alcoholic hepatitis. Labs from yesterday indicate that the LFTs are trending down very slowly. We will continue with methylprednisolone 40 mg IV daily for this condition. The patient is also on Protonix as well. 2. Gastrointestinal bleeding. Apparently, that condition is resolved. He received 2 units of blood and hemoglobin from yesterday 9.4, no more bloody secretions noted. We will continue to monitor CBC daily. 3. Aspiration pneumonia. Patient is on DuoNeb every 4 hours scheduled; also, Zosyn. He is requiring a little bit more of oxygen, in this case, it is 4 L by nasal cannula. He has being on room air during the first 2 to 3 days of hospitalization. We will continue to monitor this patient closely. 4. Severe hyponatremia. That condition is much better from yesterday. Sodium from yesterday was 132. Nephrology has been helping us in the management of this problem. Help is appreciated. 5. Protein-calorie malnutrition. We will continue with Clinimix and lipids. Patient is not able to get anything by mouth at this time. 6. Hepatic encephalopathy. Patient continues to receive lactulose and rifaximin. I am not quite sure if that rifaximin and lactulose is going through. In any case, we will continue to monitor. He continues to be very encephalopathy. 7. Alcohol abuse. The patient is a high risk of alcohol withdrawal because he used to drink between 20 and 30 cans of beer daily. He is much more confused. Will continue to monitor this patient closely. We will provide Ativan as needed. 8. Anemia of chronic disease, stable. Monitor. 9. Disposition: Patient continues to be critically ill. Liver function test are improving a little bit. I think because this patient is not ingesting alcohol in the last few days. We will continue to monitor this patient closely in the intensive care unit. Mother, brother have been informed about the clinical situation of this patient today morning. cc: Herberth Lora MD
[2019-08-10 06:37] LABS: BASO# 0.08 X1000 (0.0-0.2); BASO% 0.7 % (0.0-0.8); HEMATOCRIT 34.6 % (42.0-52.0); HEMOGLOBIN 10.5 g/dL (14.0-18.0); IMM GRAN# 0.46 X1000 (0.0-0.04); LYMPH# 0.99 X1000 (1.2-3.4); LYMPH% 8.7 % (20.5-51.1); MCHC 30.3 g/dL (33-37); MCV 102.1 FL (81-99); MONO# 2.63 X1000 (0.11-0.59); MONO% 23.2 % (1.7-9.3); MPV 9.4 FL (7.4-10.4); NEUT% 63.4 % (42.2-75.2); PLT 101 X1000 (130-400); RBC 3.39 XMIL (4.7-6.1); RDW 21.5 % (11.5-14.5); WBC 11.36 X1000 (4.8-10.8)
[2019-08-10 06:56] LABS: INR 2.2
[2019-08-10 06:58] LABS: AGAP 12; ALB/GLOB RATIO 0.9; ALBUMIN 3.4 g/dL (3.5-5.0); ALKALINE PHOSPHATASE 67 U/L (32-122); BUN 17 mg/dL (8-22); CALCIUM 9.4 mg/dL (8.8-10.2); CHLORIDE 93 mmol/L (98-107); COSMO 284; CREATININE 0.5 mg/dL (0.7-1.2); ESTIMATED GFR > 60; GLUCOSE 152 mg/dL (70-104); GOT 115 U/L (10-34); GPT 57 U/L (10-44); POTASSIUM 3.8 mmol/L (3.5-5.1); SODIUM 140 mmol/L (136-145); TCO2 35 mmol/L (25-35); TOTAL BILIRUBIN 10.43 mg/dL (0.20-1.00); TOTAL PROTEIN 7.1 g/dL (6.3-8.3)
[2019-08-10 07:15] LABS: MAGNESIUM 1.7 mg/dL (1.5-2.7)
[2019-08-10] MEDS: LIPOSYN 20% 250 ML IV SCH (08:00)
[2019-08-10] MEDS: XIFAXAN PO SCH ×2 (09:18→21:38)
[2019-08-10] MEDS: LASIX IV SCH ×2 (09:18→21:38)
[2019-08-10] MEDS: CLINIMIX E 4.25%-5% SOLUTION 1,000 ML IV SCH ×3 (09:18→18:27)
--- NOTE | 2019-08-10 10:10 | NEPHROLOGY PROGRESS NOTE ---
DATE: 08/10/2019 SUBJECTIVE: The patient again minimally responsive. OBJECTIVE: Vital Signs: Temperature 98.6 degrees, pulse 104, respiratory rate 32, blood pressure 124/79. Intake 3.2 L. Output 6.7 L. General: Middle-aged gentleman resting in bed. More sleepy, minimally responsive. HEENT: Normocephalic, atraumatic. Oral mucosa moist. Neck: Supple. Thick. Unable to determine JVD. Cardiovascular: Tachycardic but no murmur or gallop. Pulmonary: Rhonchi coarse bilaterally. Abdomen: Distended, obese. He has an NG tube LIS : Archer catheter. Dark urine noted. Extremities: 2+ to 3+ lower extremity edema. Integumentary: Skin is pale, warm, and dry. LABORATORY DATA: Sodium 140, creatinine 0.5. ASSESSMENT AND PLAN: Hyponatremia, resolved. The patient has done well with his diuresis therapy. He remains on 40 mg IV b.i.d. of Lasix. That can be continued and from a renal perspective, we will sign off at this time. If we can be of further assistance, please do not hesitate to contact us. Dictated by ORQUIDEA Judge for Cruz Weinstein MD cc: Cruz Weinstein MD [facility]
[2019-08-10] MEDS ORDERED: DULCOLAX PR ONE (11:50)
--- NOTE | 2019-08-10 15:51 | GASTROENTEROLOGY PROGRESS NOTE ---
DATE: 08/10/2019 SUBJECTIVE: The patient remains lethargic. He is receiving Xifaxan and lactulose. The nurse states he has had high residuals. He has not had a bowel movement in 5 days. He is receiving lactulose, but I am not sure he is absorbing the medication, since they report high residuals when turning suction back on after his medications. OBJECTIVE: Vital Signs: Temperature 99 degrees, pulse 107, respirations 26, blood pressure 115/74. General: Patient is not alert. LABORATORY: Hematology; WBC 11.36 hemoglobin 10.5, hematocrit 34.6, MCV 102.1, platelet 101,000. Chemistry; sodium 140, potassium 3.8, chloride 93, CO2 35, BUN 17, creatinine 0.5, glucose 115, calcium 9.4, total bilirubin 10.43, AST 15, ALT 57, alkaline phosphatase 67. ASSESSMENT AND PLAN: 1. Acute alcoholic hepatitis. Continue current medications. 2. Gastrointestinal bleeding. Hemoglobin and hematocrit have been stable, improved some today. 3. Encephalopathy. Continue lactulose and Xifaxan. They may need to hold his suction longer after his medications. 4. Constipation. Will give a Dulcolax suppository today. 5. Pneumonia. Continue current management. 6. History of alcohol abuse. 7. Continue current medications. We will give a Dulcolax suppository today. 8. Further plans to be made according to his progress. I have discussed this case with Dr. Bahena. Dictated by ORQUIDEA Toussaint for Mason Bahena MD cc: ORQUIDEA Raygoza MD
[2019-08-11] MEDS: ZOSYN 3.375 GM in NS 50 ML IV SCH ×4 (00:35→16:46)
[2019-08-11] MEDS: LACTULOSE PO SCH ×4 (02:44→20:07)
[2019-08-11] MEDS: DUONEB (A & A) INH SCH ×4 (03:47→22:55)
[2019-08-11] MEDS: CLINIMIX E 4.25%-5% SOLUTION 1,000 ML IV SCH ×2 (04:15→15:15)
[2019-08-11] MEDS: SOLU-MEDROL IV SCH (05:08)
[2019-08-11] MEDS: PROTONIX IV SCH ×2 (05:08→16:51)
[2019-08-11] MEDS ORDERED: LASIX IV ONE (05:45)
[2019-08-11 06:15] LABS: ALLEN TEST YES; BE 16.8 mmoll (-3.0-3.0); BLOOD TYPE ARTERIAL; HCO3-(ACT) 37.9 mmoll (20.0-26.0); METHB 0.8 % (0.0-1.5); O2(CT) 15.7 mL/dL (15.0-23.0); O2HB 91.2 % (95.0-99.0); PO2(98.6) 68 mmHg (60-100); SAMPLE BLOOD; SAO2 95.8 % (95.0-100.0); THB 12.2 g/dL (11.5-17.4); pH(98.6) 7.31 (7.35-7.45)
[2019-08-11 06:17] LABS: MODALITY CANNULA; PCO2(98.6) 94 mmHg (35-45)
[2019-08-11] MEDS: ZYVOX 600 MG/D5W 600 MG/300 ML IVPB IV SCH ×2 (06:28→16:46)
[2019-08-11 06:49] LABS: INR 2.18; PROTIME 24.8 Seconds (11.0-16.0)
[2019-08-11 06:55] LABS: BASO# 0.05 X1000 (0.0-0.2); BASO% 0.3 % (0.0-0.8); HEMATOCRIT 35.8 % (42.0-52.0); HEMOGLOBIN 10.4 g/dL (14.0-18.0); IMM GRAN# 0.66 X1000 (0.0-0.04); IMM GRAN% 4.4 % (0.0-0.5); LYMPH# 1.93 X1000 (1.2-3.4); LYMPH% 12.8 % (20.5-51.1); MAGNESIUM 1.9 mg/dL (1.5-2.7); MCH 30.9 PG (27-31); MCHC 29.1 g/dL (33-37); MCV 106.2 FL (81-99); MONO# 3.12 X1000 (0.11-0.59); MONO% 20.7 % (1.7-9.3); NEUT# 9.31 X1000 (1.4-6.5); NEUT% 61.8 % (42.2-75.2); PHOSPHORUS 3.9 mg/dL (2.7-4.5); PLT 85 X1000 (130-400); RBC 3.37 XMIL (4.7-6.1); RDW 21.5 % (11.5-14.5); WBC 15.07 X1000 (4.8-10.8)
[2019-08-11 07:04] LABS: AGAP 12; ALB/GLOB RATIO 0.9; ALBUMIN 3.3 g/dL (3.5-5.0); ALKALINE PHOSPHATASE 62 U/L (32-122); BUN 21 mg/dL (8-22); CALCIUM 9.2 mg/dL (8.8-10.2); CHLORIDE 94 mmol/L (98-107); COSMO 296; CREATININE 0.7 mg/dL (0.7-1.2); ESTIMATED GFR > 60; GLUCOSE 141 mg/dL (70-104); GOT 118 U/L (10-34); GPT 69 U/L (10-44); POTASSIUM 3.8 mmol/L (3.5-5.1); SODIUM 146 mmol/L (136-145); TCO2 40 mmol/L (25-35); TOTAL BILIRUBIN 10.52 mg/dL (0.20-1.00); TOTAL PROTEIN 7.1 g/dL (6.3-8.3)
--- NOTE | 2019-08-11 07:21 | PROGRESS NOTE ---
DATE: 08/11/2019 SUBJECTIVE: The patient continues to be encephalopathic. He has not received any Ativan recently. He continues to be more tachypneic, and his oxygen requirements have gone up to now 6 liters per minute by nasal cannula. He continues to receive lactulose and rifaximin through the NG tube, although the residuals have been 100 mL recently. OBJECTIVE: Vital Signs: Temperature 99, heart rate 103, respiratory rate 35, blood pressure 118/74, and O2 saturation 99% on 6 liters nasal cannula. General Examination: This is a chronically ill-looking, very jaundiced and morbidly obese 49-year-old male, lying in bed, in no acute distress. HEENT: Head is normocephalic, atraumatic with very icteric sclerae and pale conjunctivae. Neck: Not possible to evaluate JVD because of the neck girth. No carotid bruits. No lymphadenopathy. No thyromegaly. Cardiovascular: S1 and S2 heard. Tachycardic, but no murmurs, gallops, or rubs noted. Respiratory: On exam, the patient looks tachypneic. Continues to have coarse breath sounds and rhonchi all over both pulmonary gutierres anteriorly. The patient is not using any accessory muscles or having work of breathing. Abdomen: Soft. A little bit distended. Obese. There is an umbilical hernia noted. No signs of peritoneal irritation. Genitourinary: Archer catheter in place with yellowish urine. Hydrocele noted. Extremities: There is 2+ pitting edema in both lower extremities up to both thighs, the same in comparing with yesterday. Peripheral pulses present but faint. Neurological: Patient continues to be lethargic during the last 48 hours. He has not received any Ativan and does not follow commands. LABORATORY DATA: Those are pending at the time of my dictation, but from yesterday shows a little bit of improvement in the liver function tests except the bilirubin. ASSESSMENT AND PLAN: 1. Acute alcoholic hepatitis. Bilirubin continues to be higher. We do not have the labs from today. INR is slowly getting better, as well as transaminases. We will continue with methylprednisolone 40 mg IV daily for this condition. The patient is also on Protonix IV as well. 2. Hepatic encephalopathy. Patient continues to receive lactulose and Xifaxan. The day before yesterday his residuals were high so I am not quite sure if this patient was really absorbing those medications. Apparently, the residuals have been getting better. We will continue with the same management. 3. Gastrointestinal bleeding. No more bloody secretions reported. Hemoglobin continues to be stable. We will continue to monitor. 4. Aspiration pneumonia. The patient has aspirated 3 days ago. The patient has been started on Zosyn. The patient started having a little bit of temperature. He is requiring more oxygen supplementation, in this case is 6 liters by nasal cannula. He has been on room air at admission. At this point, I am going to order a CT of the thorax, and we will go from there. Pulmonary is following this patient. We will follow recommendations. 5. Severe hyponatremia, resolved. Sodium is completely back to normal. Nephrology has been following this patient, but they signed off. 6. Protein-calorie malnutrition. We will continue with Clinimix and lipids. The patient is not able to get anything by mouth at this time. 7. Alcohol abuse. The patient has a high risk of alcohol withdrawal because he used to drink between 20 and 30 cans of beer. At this point, we will continue with Ativan p.r.n., but the patient is definitely more encephalopathic rather than going to alcohol withdrawal. We will continue to monitor. 8. Pulmonary edema. Patient sounds wet in my examination yesterday and today. That is the reason why he has been started on furosemide 40 mg IV twice daily. We will provide 1 dose of 80 mg of Lasix this morning, and we will give to him the next dose of Lasix 40 mg at night. We will continue to monitor input and output strictly. 9. Anemia of chronic disease. Stable. 10. Disposition. The patient continues to be critically ill. Now, because of his worsening hypoxemic respiratory failure, we will do a CT of the thorax with contrast and we will go from there. Family has been updated about the situation of this patient, in this case mother and brother. cc: Herberth Lora MD [facility]
[2019-08-11 07:52] LABS: LYMPHS 12 % (21-51); MONO 6 % (1-9); NRBC 1 % (0-0)
[2019-08-11 07:53] LABS: ANISOCYTOSIS 1+; BANDS 4 % (0-1); HYPOCHROM 1+; MYELOCYTES 2 %; SEGS 74 % (42-75)
[2019-08-11] MEDS: LIPOSYN 20% 250 ML IV SCH (09:26)
[2019-08-11] MEDS: LASIX IV SCH (09:29)
[2019-08-11] MEDS: XIFAXAN PO SCH ×2 (09:50→20:07)
[2019-08-11 13:27] LABS: ALLEN TEST YES; BE 16.3 mmoll (-3.0-3.0); BLOOD TYPE ARTERIAL; HCO3-(ACT) 37.6 mmoll (20.0-26.0); O2(CT) 17.6 mL/dL (15.0-23.0); O2HB 94.9 % (95.0-99.0); PO2(98.6) 86 mmHg (60-100); SAMPLE BLOOD; SAO2 99.5 % (95.0-100.0); THB 13.1 g/dL (11.5-17.4); pH(98.6) 7.47 (7.35-7.45)
[2019-08-11 13:29] LABS: PCO2(98.6) 59 mmHg (35-45)
[2019-08-11 13:30] LABS: MODALITY BI PAP
[2019-08-11] MEDS: SODIUM CHLORIDE 0.9% INJ SCH (16:52)
[2019-08-11] MEDS ORDERED: D5W 1,000 ML IV SCH (17:00)
--- NOTE | 2019-08-11 17:58 | Diag Imaging Result Doc PS360 ---
EXAM: CT THORAX W/CONTRAST 08/11/2019 HISTORY: acute resp failure TECHNIQUE: This exam was performed using automated exposure control, adjustment of mA or kV according to patient size, and/or use of iterative reconstruction technique. COMMENT: There are no previous studies available for comparison. There is an NG tube with its tip in the stomach. There is ascites. There are small bilateral pleural effusions. There are patchy opacities present in both lower lobes and the dependent portions of the upper lobes. The pulmonary vascularity is increased. The regional skeleton appears to be intact. IMPRESSION: Cardiomegaly and increased pulmonary vascularity. Pulmonary edema plus minus pneumonia. Small pleural effusions. Ascites. Electronically signed by Don Walker 08/11/2019 5:56 PM
--- NOTE | 2019-08-11 19:52 | PULMONOLOGY CONSULTATION ---
DATE: 08/11/2019 REASON FOR CONSULTATION: Respiratory failure. HISTORY OF PRESENT ILLNESS: Mr. Delacruz is a 49-year-old male, with history of daily alcohol consumption, who presented to the emergency room 08/04/2019 complaining of shortness of breath and poor appetite for 2 weeks. The patient was found to have morbid obesity with a BMI greater than 50, severe hyponatremia with a sodium of 108, and a chest x-ray which revealed mild atelectasis in the left mid lung and lung base. The patient underwent CT scan of the abdomen and pelvis which revealed anasarca with body wall edema, cirrhosis, mild ascites, with cardiomegaly, and evidence of pulmonary vascular congestion. His sodium has been corrected and he is now actually mildly hypernatremic. His mental status has continued to decline with the increase in ammonia level. His oxygen requirements have also increased and he is now on a BiPAP device. PAST MEDICAL HISTORY: 1. Morbid obesity. 2. Gastroesophageal reflux disease. 3. Dyslipidemia. 4. Alcoholism. 5. Umbilical hernia. SOCIAL HISTORY: Daily alcohol use. No tobacco use. FAMILY HISTORY: Noncontributory to current presentation. PHYSICAL EXAMINATION: General: Reveals an overtly jaundiced male on BiPAP ventilation. He is arousable, but will not follow commands. HEENT: Sclerae are icteric. Oropharynx appears clear, but evaluation is limited. Neck: Supple. Chest: Reveals shallow breath sounds bilaterally. Cardiac: Distant heart sounds. Regular rhythm. Chest reveals shallow breath sounds bilaterally. Abdomen: Obese and soft, with umbilical hernia present. Extremities: Reveal trace to 1+ peripheral edema. LABORATORIES: Sodium 146, potassium 3.8, chloride 94, bicarbonate 40, BUN 21, creatinine 0.7, albumin 3.3, bilirubin 10.52, AST 118, ALT 69. Arterial blood gas on BiPAP reveals a pH 7.47, pCO2 of 59, pO2 of 86, with a lactate of 7.0. CT scan of the thorax is pending. IMPRESSION: A 49-year-old with: 1. Acute hypoxemic respiratory failure. 2. Acute liver failure with alcoholic hepatitis. 3. Morbid obesity with a BMI greater than 50. 4. Hepatic coma. 5. Hypernatremia. 6. Possible mild basilar pneumonia. RECOMMENDATIONS: 1. Continue BiPAP. 2. Continue ICU monitoring. He is at risk for decompensation requiring intubation. 3. We will give free water today given increasing hypernatremia. 4. Continue bronchodilators with Mucomyst in an attempt to prevent mucus plugging. 5. Long-term survival would depend on alcohol cessation. 6. His prognosis is guarded. cc: Leonel Andrade MD
--- NOTE | 2019-08-11 20:43 | GASTROENTEROLOGY PROGRESS NOTE ---
DATE: 08/11/2019 SUBJECTIVE: The patient is still unresponsive. He has had worsening respiratory status where he is requiring BiPAP machine at the time of my visit. He has family at the bedside. The nurse reports still having some high residuals. She is leaving the NG tube clamped longer after his medications. He did have a bowel movement yesterday after a Dulcolax suppository was given. OBJECTIVE: Vital Signs: Temperature 98 degrees, pulse 95, respirations 18, blood pressure 105/66. General: The patient is unresponsive. Respiratory: BiPAP in place. Abdomen: Some distention, otherwise soft. LABORATORY: Hematology: WBC 15.07, hemoglobin 10.4, hematocrit 35.8, MCV 106.2, platelets 85,000. Coagulation: Protime 24.8, INR 2.18. Chemistry: Sodium 146, potassium 3.8, chloride 94, CO2 40, BUN 21, creatinine 0.7, glucose 141, calcium 9.2, total bilirubin 10.52, AST 118, ALT 69, alkaline phosphatase 62. ASSESSMENT AND PLAN: 1. Hepatic encephalopathy. 2. Alcoholic hepatitis. Will continue to monitor liver function tests. Continue lactulose and Xifaxan. 3. Questionable gastrointestinal bleed. Hemoglobin and hematocrit have been stable over the last several days. 4. Pneumonia. Continue antibiotics. 5. Protein-calorie malnutrition. Patient is on Clinimix. 6. Will continue to follow. Continue current management. Further plans will be made according to his progress. I have discussed this case with Dr. Bahena. Dictated by ORQUIDEA Toussaint for Mason Bahena MD cc: ORQUIDEA Raygoza MD
[2019-08-11] MEDS: MUCOMYST 20% INH SCH (22:55)
[2019-08-12] MEDS: ZOSYN 3.375 GM in NS 50 ML IV SCH ×5 (01:16→23:35)
[2019-08-12] MEDS: CLINIMIX E 4.25%-5% SOLUTION 1,000 ML IV SCH ×4 (01:16→23:44)
[2019-08-12] MEDS: LACTULOSE PO SCH ×4 (03:16→20:55)
[2019-08-12] MEDS: DUONEB (A & A) INH SCH ×4 (03:46→18:57)
[2019-08-12 04:42] LABS: BASO# 0.07 X1000 (0.0-0.2); BASO% 0.6 % (0.0-0.8); HEMATOCRIT 31.6 % (42.0-52.0); HEMOGLOBIN 9.5 g/dL (14.0-18.0); IMM GRAN# 0.81 X1000 (0.0-0.04); IMM GRAN% 6.7 % (0.0-0.5); LYMPH# 2.09 X1000 (1.2-3.4); LYMPH% 17.3 % (20.5-51.1); MCH 30.9 PG (27-31); MCHC 30.1 g/dL (33-37); MCV 102.9 FL (81-99); MONO% 18.2 % (1.7-9.3); MPV 10.2 FL (7.4-10.4); NEUT# 6.92 X1000 (1.4-6.5); NEUT% 57.2 % (42.2-75.2); PLT 66 X1000 (130-400); RBC 3.07 XMIL (4.7-6.1); WBC 12.09 X1000 (4.8-10.8)
[2019-08-12 04:46] LABS: INR 2.32
[2019-08-12] MEDS: PROTONIX IV SCH ×2 (05:06→17:35)
[2019-08-12] MEDS: SOLU-MEDROL IV SCH (05:06)
[2019-08-12] MEDS: ZYVOX 600 MG/D5W 600 MG/300 ML IVPB IV SCH ×2 (05:07→17:35)
[2019-08-12 05:15] LABS: AGAP 16; ALB/GLOB RATIO 0.9; ALKALINE PHOSPHATASE 53 U/L (32-122); BUN 28 mg/dL (8-22); CHLORIDE 91 mmol/L (98-107); COSMO 289; CREATININE 0.7 mg/dL (0.7-1.2); ESTIMATED GFR > 60; GLUCOSE 142 mg/dL (70-104); GOT 110 U/L (10-34); GPT 67 U/L (10-44); POTASSIUM 3.3 mmol/L (3.5-5.1); SODIUM 141 mmol/L (136-145); TCO2 34 mmol/L (25-35); TOTAL PROTEIN 6.5 g/dL (6.3-8.3)
[2019-08-12 05:28] LABS: ALLEN TEST YES; BE 14.5 mmoll (-3.0-3.0); BLOOD TYPE ARTERIAL; HCO3-(ACT) 36.3 mmoll (20.0-26.0); PO2(98.6) 107 mmHg (60-100); SAMPLE BLOOD; pH(98.6) 7.47 (7.35-7.45)
[2019-08-12 05:30] LABS: MODALITY BI PAP; PCO2(98.6) 56 mmHg (35-45)
--- NOTE | 2019-08-12 07:37 | Diag Imaging Result Doc PS360 ---
EXAM: CHEST-PORTABLE INDICATION: abnormal exam TECHNIQUE: One view COMPARISON: 08/09/2019 FINDINGS: The NG tube is in stable position. Lung volumes have slightly improved during the interval. No new consolidation is identified. Cardiac silhouette is stable. IMPRESSION: Improved lung volumes. Stable chest, otherwise. Electronically signed by Chris Mcpherson 08/12/2019 7:35 AM
[2019-08-12] MEDS: MUCOMYST 20% INH SCH ×2 (08:07→18:57)
[2019-08-12] MEDS: XIFAXAN PO SCH ×2 (08:10→21:01)
[2019-08-12] MEDS: LIPOSYN 20% 250 ML IV SCH (08:10)
[2019-08-12] MEDS ORDERED: THIAMINE 100 MG in NS 50 ML IV ONE (13:07)
[2019-08-12] MEDS ORDERED: LASIX IV ONE (13:08)
[2019-08-12] MEDS: VITAMIN K PO SCH (13:56)
--- NOTE | 2019-08-12 14:04 | GASTROENTEROLOGY PROGRESS NOTE ---
DATE: 08/12/2019 SUBJECTIVE: Patient continues on BiPAP. He continues to be unresponsive. Per nurse report, his residuals have been less today. He is receiving lactulose and Xifaxan per his NG tube. He has some orange color drainage in the tube. OBJECTIVE: Vital Signs: Temperature 99.1 degrees, pulse 94, respirations 14, blood pressure 105/66. General: Patient is not responsive. He is on BiPAP machine. Laboratory: Hematology: WBC 12.09, hemoglobin 9.5, hematocrit 31.6, MCV 102.9, platelets 66,000. Chemistry: Sodium 141, potassium 3.3, chloride 91, CO2 of 34, BUN 28, creatinine 0.7, glucose 142. Total bilirubin 9.60, AST 110, ALT 67, ammonia 70. ProBNP 1188. ASSESSMENT AND PLAN: 1. Hepatic encephalopathy. Continue lactulose and Xifaxan. 2. Alcoholic hepatitis. 3. Liver failure with a slight improvement in his liver function tests today. 4. Pneumonia. Continue current management. 5. Protein-calorie malnutrition. Patient is receiving Clinimix. We will continue to follow and further plans will be made as needed. Continue lactulose and Xifaxan. Further plans to be made according to patient's progress. I have discussed this case with Dr. Bahena. Dictated by ORQUIDEA Toussaint for Mason Bahena MD cc: ORQUIDEA Raygoza MD
--- NOTE | 2019-08-12 14:28 | PROGRESS NOTE ---
DATE: 08/12/2019 SUBJECTIVE: This morning Mr. Delacruz remains stable. He is on BiPAP. OBJECTIVE: His current vitals: Blood pressure is 105/66, pulse of 94, respirations 14, temperature 99.1 degrees, saturating 99%. There was a brother and [id number] for were at the bedside at the time of the encounter.General: Mr. Delacruz is a 49-year-old male. He is in bed. HEENT: Mucosa is pink and moist. Anicteric. Acyanotic. Neck: Neck is supple. Chest: Air entry is bilaterally reduced. Some crackles in the posterior lung gutierres. Cardiovascular: Regular rate and rhythm. No murmurs, no rubs, no gallops. GI: Abdomen was soft. It is distended. There is a large umbilical hernia noted. Extremities: About 3+ pedal edema. TEST LEAD: Patient is stuporous, but will easily open his eyes to command and will show me 2 fingers when asked to. LABORATORY DATA: Has been reviewed. WBC is down to 12.09, hemoglobin is 9.5, platelet count of 66,000. Chemistry is also reviewed. Sodium is 141, potassium is 3.3, bicarb is in 34. AST and ALT continues to be elevated but much better. ASSESSMENT: 1. Acute hypoxemic respiratory failure. The patient continues to be on cycles between BiPAP and Venturi mask. 2. Acute alcohol hepatitis. Patient continues to be on prednisone. 3. Global encephalopathy, presumably from hepatic encephalopathy. However, other possible etiologies including vitamin deficiencies, alcohol withdrawal, metabolic from severe hyponatremia on presentation could have all contributed. 4. Aspiration pneumonia patient is on antimicrobial coverage. Today is day 4. 5. Severe hyponatremia on presentation resolved. 6. Alcohol use and abuse on presentation. 7. Volume overload presumably from cirrhosis of the liver. The patient has been started on Lasix with spironolactone combo. 8. Anemia of chronic disease. 9. Cardiomegaly with pulmonary edema suggests concerning for left ventricular dysfunction. Pro B has been repeated and it is elevated, so we will get an echocardiogram to see what his ejection fraction. 10. Large ventral hernia noted. 11. Cirrhosis of the liver complicated with ascites, fluid overload, thrombocytopenia, coagulopathy, and borderline splenomegaly. cc: Lavon Avina MD
--- NOTE | 2019-08-12 21:46 | PULMONOLOGY PROGRESS NOTE ---
DATE: 08/12/2019 SUBJECTIVE: The patient will open his eyes to stimulation. He will not follow commands. OBJECTIVE: Vital Signs: Maximum temperature over the last 24 hours is 99.8 degrees, blood pressure 109/64, heart rate 94, respiratory rate 18, oxygen saturation 96%. HEENT: Pupils are equal and reactive. Sclera are icteric. Oropharynx appears dry. Neck: Supple. Chest: Reveals shallow breath sounds bilaterally with crackles present. Cardiac: S1, S2. Abdomen: Obese and soft. Extremities: Reveal 1+ peripheral edema. LABORATORIES: Sodium 141, potassium 3.3, chloride 91, bicarbonate 34, BUN 28, creatinine 0.7. Arterial blood gas reveals a pH of 7.47, pCO2 of 56, pO2 of 107, with a lactate of 9.1. INR is 2.32. IMPRESSION: A 49-year-old with: 1. Acute hypoxemic respiratory failure. 2. Hypercapnic respiratory failure. 3. Acute liver failure with alcoholic hepatitis. 4. Hepatic coma. 5. Resolving hypernatremia. 6. Possible bibasilar pneumonia. 7. Lactic acidosis without significant acidemia. PLAN: 1. Continue BiPAP. We will consider high-flow oxygen tomorrow. 2. Continue ICU monitoring. He is at high risk for intubation. 3. Continue bronchodilators. 4. Prognosis is guarded. cc: Leonel Andrade MD
[2019-08-13] MEDS: CLINIMIX E 4.25%-5% SOLUTION 1,000 ML IV SCH ×3 (01:41→15:27)
[2019-08-13] MEDS: LACTULOSE PO SCH ×4 (01:41→20:55)
[2019-08-13] MEDS: DUONEB (A & A) INH SCH ×4 (03:20→21:35)
[2019-08-13 04:36] LABS: ALLEN TEST YES; BLOOD TYPE ARTERIAL; METHB 0.7 % (0.0-1.5); O2(CT) 12.4 mL/dL (15.0-23.0); PO2(98.6) 88 mmHg (60-100); SAMPLE BLOOD; SAO2 100.3 % (95.0-100.0); THB 9.1 g/dL (11.5-17.4)
[2019-08-13 04:39] LABS: pH(98.6) 7.59 (7.35-7.45)
[2019-08-13 04:40] LABS: PCO2(98.6) 54 mmHg (35-45)
[2019-08-13 04:41] LABS: MODALITY BI PAP
[2019-08-13] MEDS: ZOSYN 3.375 GM in NS 50 ML IV SCH ×4 (04:59→23:44)
[2019-08-13] MEDS: SOLU-MEDROL IV SCH (05:00)
[2019-08-13] MEDS: PROTONIX IV SCH ×2 (05:00→17:34)
[2019-08-13] MEDS: ZYVOX 600 MG/D5W 600 MG/300 ML IVPB IV SCH ×2 (05:00→17:34)
[2019-08-13] MEDS: LIPOSYN 20% 250 ML IV SCH (05:59)
[2019-08-13 07:00] LABS: BASO# 0.05 X1000 (0.0-0.2); BASO% 0.4 % (0.0-0.8); HEMATOCRIT 29.2 % (42.0-52.0); HEMOGLOBIN 8.8 g/dL (14.0-18.0); IMM GRAN# 0.67 X1000 (0.0-0.04); IMM GRAN% 5.4 % (0.0-0.5); LYMPH# 1.33 X1000 (1.2-3.4); LYMPH% 10.7 % (20.5-51.1); MCH 30.8 PG (27-31); MCHC 30.1 g/dL (33-37); MCV 102.1 FL (81-99); MONO# 2.72 X1000 (0.11-0.59); MPV 10.9 FL (7.4-10.4); NEUT# 7.62 X1000 (1.4-6.5); NEUT% 61.5 % (42.2-75.2); PLT 64 X1000 (130-400); RBC 2.86 XMIL (4.7-6.1); RDW 20.8 % (11.5-14.5); WBC 12.39 X1000 (4.8-10.8)
[2019-08-13 07:12] LABS: AGAP 9; ALB/GLOB RATIO 0.7; ALBUMIN 2.5 g/dL (3.5-5.0); ALKALINE PHOSPHATASE 48 U/L (32-122); BUN 37 mg/dL (8-22); CALCIUM 9.1 mg/dL (8.8-10.2); CHLORIDE 93 mmol/L (98-107); COSMO 294; CREATININE 0.6 mg/dL (0.7-1.2); ESTIMATED GFR > 60; GLUCOSE 138 mg/dL (70-104); GOT 125 U/L (10-34); GPT 75 U/L (10-44); PHOSPHORUS 4.2 mg/dL (2.7-4.5); POTASSIUM 3.6 mmol/L (3.5-5.1); SODIUM 142 mmol/L (136-145); TCO2 40 mmol/L (25-35); TOTAL BILIRUBIN 9.73 mg/dL (0.20-1.00)
[2019-08-13] MEDS: MUCOMYST 20% INH SCH ×2 (07:46→21:35)
[2019-08-13] MEDS: LASIX IV SCH (08:02)
[2019-08-13] MEDS: VITAMIN K PO SCH (08:02)
[2019-08-13] MEDS: XIFAXAN PO SCH ×2 (08:03→21:44)
[2019-08-13] MEDS: THERA M PLUS PO SCH (08:03)
[2019-08-13] MEDS: ALDACTONE PO SCH (08:03)
[2019-08-13] MEDS: THIAMINE 100 MG in NS 50 ML IV SCH (08:03)
[2019-08-13 11:22] LABS: BANDS 3 % (0-1); LYMPHS 9 % (21-51); MONO 19 % (1-9); NRBC 7 % (0-0); POLYCHROM 1+; SEGS 68 % (42-75)
--- NOTE | 2019-08-13 11:54 | PROGRESS NOTE ---
DATE: 08/13/2019 SUBJECTIVE: This morning Mr. Delacruz looks a lot more alert. He was conversational, a little garbled, but he was able to recognize the , the brother who was at the bedside, and the mother. OBJECTIVE: Vital Signs: Blood pressure 99/60, pulse of 83, respiration is 16, temperature is 99.2 degrees. The patient is saturating 98%. General: On exam, Mr. Delacruz is a 49-year-old gentleman. He is in bed, does not seems to be in any cardiopulmonary distress. Mucosa is pink, slightly icteric. Neck: Supple. Chest: Good air entry bilateral. There are crackles posteriorly. Cardiovascular: Regular rate and rhythm. There are no murmurs, no rubs, no gallops. Gastrointestinal: The abdomen is soft, is protuberant, but nontender. There is a large umbilical hernia noted. Extremities: About 2+ pedal edema. Central Nervous System: Patient is more alert. He is conversational. However, the speech is slightly garbled, but he is able to recognize his family members around, and he follows basic commands. LABORATORY DATA: His WBC is 12.39, hemoglobin is 8.8, platelet count of 64,000. Chemistry is also reviewed. Creatinine is normal. LFTs are minimally elevated. No imaging studies today. The patient's input and output, urine output was 2740. He is currently negative balance of 21,000. ASSESSMENT AND PLAN: 1. Acute hypoxemic respiratory failure. The patient cycles between the BiPAP and Venturi mask. 2. Acute alcohol hepatitis. He is currently on methylprednisolone. 3. Global encephalopathy, presumably from hepatic encephalopathy, as well as alcohol withdrawal, metabolic encephalopathy from hyponatremia, and vitamin deficiencies. This all seems to be controlled. Patient's mentation is improving. 4. Aspiration pneumonia. The patient is on the patient is on Zyvox and Zosyn. Today is day 5. 5. Severe hyponatremia on presentation, resolved. 6. Alcohol use and abuse on presentation. Patient has been counseled. He is currently on vitamin replacement. 7. Fluid overload secondary to cirrhosis of the liver. The patient has been started on Lasix and spironolactone. He seems to be diuresing well. 8. Cardiomegaly with pulmonary edema suggestive of possible left ventricle dysfunction. Pro-B is elevated. Echocardiogram has been done yesterday. We are pending the results. 9. Large ventral hernia, noted. 10. Cirrhosis of the liver complicated with ascites, fluid overload, thrombocytopenia, borderline splenomegaly, and coagulopathy, noted. SUMMARY: In general, I think Mr. Delacruz seems to be doing slightly better. We are going to get the NG tube out and start him on clear liquids this morning. We will get physical therapy also to start working with him and hopefully get him transferred to the medical floor tomorrow if he continues to show study improvement. cc: Lavon Avina MD
--- NOTE | 2019-08-13 13:39 | ECHO REPORT ---
ORDER DATE: 08/12/2019 ECHOCARDIOGRAPHIC MEASUREMENTS: 1. Interventricular septum 1.0. 2. Left ventricular posterior wall 1.0. 3. Diastolic diameter 4.8. 4. Left atrium 4.3. 5. Aorta 2.2. SUMMARY OF THE 2-DIMENSIONAL IMAGIN. Aortic valve leaflets were trileaflet. 2. Technically suboptimal study. Poor acoustic window. 3. Pulmonic valve was normal. 4. Mitral valve was normal. 5. Tricuspid valve was normal. 6. There is mild mitral regurgitation. 7. Peak velocity across the aortic valve less than 2 m/sec. There is no aortic stenosis or regurgitation. 8. There is mild tricuspid regurgitation. Peak velocity across the tricuspid valve was 2 m/sec. 9. Optison was used to assess left ventricular systolic function. 10. Normal left ventricular cavity size. Estimated ejection fraction of 65 to 70 percent. 11. There is left atrial enlargement. 12. There is grade 1 diastolic dysfunction. 13. There is no pericardial effusion or obvious intracardiac mass or thrombus. cc: MD Lavon Cadena MD
--- NOTE | 2019-08-13 20:17 | PULMONOLOGY PROGRESS NOTE ---
DATE: 08/13/2019 SUBJECTIVE: The patient is more arousable. He does attempt to speak while wearing the BiPAP. He will follow a simple command. OBJECTIVE: Vital Signs: The patient has been afebrile for the last 24 hours. Blood pressure 99/60, heart rate 83, respiratory rate 16, oxygen saturation 98%. HEENT: Pupils are equal and reactive. Oropharynx appears clear, but limited view. Neck: Supple. Chest: Reveals shallow breath sounds bilaterally. Cardiac: S1, S2. Abdomen: Obese and soft. Extremities: 1+ peripheral edema. LABORATORIES: Arterial blood gas reveals a pH of 7.59, pCO2 of 54, pO2 of 88, with a normal lactate. White blood count 12.39, hemoglobin 8.8, platelet count 64,000. IMPRESSION: A 49-year-old with: 1. Acute hypoxemic respiratory failure. 2. Hypercapnic respiratory failure. 3. Acute liver failure with alcoholic hepatitis. 4. Delirium. Mental status has improved. 5. Pneumonia. 6. Lactic acidosis, with resolution. PLAN: 1. Continue BiPAP at bedtime and p.r.n. We will try a nasal cannula or a Ventimask. 2. Continue ICU monitoring. 3. Continue bronchodilators. 4. Prognosis is guarded. cc: Leonel Andrade MD
--- NOTE | 2019-08-13 20:32 | GASTROENTEROLOGY PROGRESS NOTE ---
DATE: 08/13/2019 SUBJECTIVE: Patient today is awake. His eyes are open. He was purposeful. His was at the bedside. OBJECTIVE: Vital Signs: Temperature 98.5 degrees, pulse 81, respirations 20, blood pressure 100/58. General: Patient was awake, eyes open, alert. LABORATORY: Hematology: WBC 12.39, hemoglobin 8.8, hematocrit 29.2, MCV 102.1, platelets 64,000. Chemistry: Sodium 142, potassium 3.6, chloride 93, CO2 40, BUN 37, creatinine 0.6, glucose 138, total bilirubin 9.73, AST 125, ALT 75, alkaline phosphatase 48. ASSESSMENT AND PLAN: 1. Hepatic encephalopathy has improved. Continue lactulose and Xifaxan. Patient's nasogastric tube has been removed and he has been started on a liquid diet. 2. Alcoholic hepatitis. Continue to monitor liver function tests. 3. Pneumonia, on antibiotics. 4. Protein-calorie malnutrition. Patient's nasogastric tube has been removed and he has been started on a clear liquid diet. 5. Further plans to be made according to his progress. I have discussed this case with Dr. Bahena. Dictated by ORQUIDEA Toussaint for Mason Bahena MD cc: ORQUIDEA Raygoza MD
[2019-08-14] MEDS: LACTULOSE PO SCH ×4 (02:06→22:25)
[2019-08-14] MEDS: DUONEB (A & A) INH SCH ×4 (03:10→22:05)
[2019-08-14] MEDS: CLINIMIX E 4.25%-5% SOLUTION 1,000 ML IV SCH ×2 (03:51→04:24)
[2019-08-14 04:45] LABS: ALLEN TEST YES; BE 21.9 mmoll (-3.0-3.0); BLOOD TYPE ARTERIAL; O2(CT) 12.2 mL/dL (15.0-23.0); O2HB 93.7 % (95.0-99.0); PO2(98.6) 72 mmHg (60-100); SAMPLE BLOOD; SAO2 95.5 % (95.0-100.0); THB 9.2 g/dL (11.5-17.4); pH(98.6) 7.54 (7.35-7.45)
[2019-08-14] MEDS: SOLU-MEDROL IV SCH (05:16)
[2019-08-14] MEDS: PROTONIX IV SCH ×2 (05:16→17:31)
[2019-08-14] MEDS: ZYVOX 600 MG/D5W 600 MG/300 ML IVPB IV SCH ×2 (05:16→17:31)
[2019-08-14] MEDS: ZOSYN 3.375 GM in NS 50 ML IV SCH ×3 (05:16→17:31)
[2019-08-14 05:40] LABS: MODALITY CANNULA; PCO2(98.6) 55 mmHg (35-45)
[2019-08-14 06:12] LABS: BASO# 0.06 X1000 (0.0-0.2); BASO% 0.4 % (0.0-0.8); HEMOGLOBIN 9.2 g/dL (14.0-18.0); IMM GRAN# 0.53 X1000 (0.0-0.04); IMM GRAN% 3.5 % (0.0-0.5); LYMPH% 13.1 % (20.5-51.1); MCH 31.2 PG (27-31); MCHC 30.7 g/dL (33-37); MCV 101.7 FL (81-99); MONO# 3.17 X1000 (0.11-0.59); MONO% 20.8 % (1.7-9.3); MPV 10.6 FL (7.4-10.4); NEUT% 62.2 % (42.2-75.2); PLT 57 X1000 (130-400); RBC 2.95 XMIL (4.7-6.1); RDW 20.9 % (11.5-14.5); WBC 15.26 X1000 (4.8-10.8)
[2019-08-14] MEDS: LIPOSYN 20% 250 ML IV SCH (06:14)
[2019-08-14 06:34] LABS: AGAP 11; ALB/GLOB RATIO 0.7; ALBUMIN 2.7 g/dL (3.5-5.0); ALKALINE PHOSPHATASE 53 U/L (32-122); BUN 38 mg/dL (8-22); CALCIUM 8.6 mg/dL (8.8-10.2); CHLORIDE 92 mmol/L (98-107); COSMO 297; CREATININE 0.7 mg/dL (0.7-1.2); ESTIMATED GFR > 60; GLUCOSE 156 mg/dL (70-104); GOT 123 U/L (10-34); GPT 85 U/L (10-44); PHOSPHORUS 5.2 mg/dL (2.7-4.5); POTASSIUM 3.3 mmol/L (3.5-5.1); SODIUM 143 mmol/L (136-145); TCO2 40 mmol/L (25-35); TOTAL BILIRUBIN 9.68 mg/dL (0.20-1.00); TOTAL PROTEIN 6.5 g/dL (6.3-8.3)
--- NOTE | 2019-08-14 06:44 | Diag Imaging Result Doc PS360 ---
CHEST-PORTABLE - 08/14/2019 INDICATION: abnormal exam COMPARISON: 08/12/2019 FINDINGS: Lung volumes are critically low. No obvious infiltrates. Heart size is top normal. IMPRESSION: Critically low lung volumes. Electronically signed by Stanley Saenz 08/14/2019 6:42 AM
[2019-08-14] MEDS: THERA M PLUS PO SCH (08:46)
[2019-08-14] MEDS: THIAMINE 100 MG in NS 50 ML IV SCH (08:46)
[2019-08-14] MEDS: XIFAXAN PO SCH ×2 (08:46→22:25)
[2019-08-14] MEDS: LASIX IV SCH (08:46)
[2019-08-14] MEDS: ALDACTONE PO SCH (08:46)
[2019-08-14] MEDS: VITAMIN K PO SCH (08:47)
[2019-08-14] MEDS: MUCOMYST 20% INH SCH ×2 (09:38→22:05)
--- NOTE | 2019-08-14 17:29 | PROGRESS NOTE ---
DATE: 08/14/2019 SUBJECTIVE: I have seen and examined Mr. Delacruz today. He refers to be doing a lot better. He was more awake, alert. He was eating his breakfast at the time of the encounter. OBJECTIVE: Vital signs: Blood pressure is 105/65, pulse of 91, respirations 28, temperature is 98.5 degrees. General: Mr. Delacruz is a 49-year-old gentleman. He is in bed, no distress, mucosa is pink and moist. Anicteric. Acyanotic. Neck: Supple. Cardiovascular: Regular rate and rhythm. No murmurs, no rubs, no gallops. Chest: There is good air entry bilaterally. Few crackles in the posterior lung gutierres. Gastrointestinal: Abdomen was soft. It is protuberant and distended. A large umbilical hernia was noted. Extremities: About 2+ pedal edema but looks much better. Central Nervous System: Patient is awake, alert, and follows basic commands. LABORATORY DATA: WBC is 15.26, hemoglobin is 9.2, platelet count of 57,000. Chemistry is also reviewed. AST and ALT still minimally elevated. IMAGING STUDIES: A chest x-ray shows critical low lung volumes. MEDICATIONS: Have all been reviewed. ASSESSMENT: 1. Acute hypoxemic respiratory failure, improving. The patient this morning was just on Venturi mask. 2. Acute alcohol hepatitis. 3. Altered mental status secondary to global encephalopathy, presumably from hepatic encephalopathy, possible alcohol withdrawal, metabolic encephalopathy from severe hyponatremia and vitamin deficiencies. Patient's mentation is gradually improving. 4. Aspiration pneumonia. We will continue with the current antimicrobial coverage. Patient is on Zyvox and Zosyn. Today is day 6. 5. Severe hyponatremia on presentation resolved. 6. Alcohol use and abuse on presentation, the patient is counseled. 7. Fluid overload secondary to cirrhosis of the liver. The patient is on Lasix with spironolactone. 8. Cardiomegaly with pulmonary edema suggestive of possible left ventricular dysfunction. The patient had an echocardiogram which showed an ejection fraction of 65 to 70 percent with grade 1 diastolic dysfunction, so this will be a diastolic dysfunction heart failure. 9. Large ventral hernia noted. 10. Cirrhosis of the liver complicated with ascites, fluid overload, thrombocytopenia, borderline splenomegaly and coagulopathy. PLAN: In general, I think Mr. Delacruz's mentation is getting better. He is still slightly confused but more interactive and more oriented than yesterday. We are going to remove the Archer catheter, start the patient on GI soft diet and transfer him out of the ICU to the regular medical floor. We will get physical therapy to start working with him and we will replace his borderline potassium. cc: Lavon Avina MD
--- NOTE | 2019-08-14 19:06 | GASTROENTEROLOGY PROGRESS NOTE ---
DATE: 08/14/2019 SUBJECTIVE: Patient was awake. He was alert. No acute distress. They are planning to transfer him to the floor. At the time of my visit, he was still in the intensive care unit. They are advancing his diet. OBJECTIVE: Vital Signs: Temperature 99.5 degrees, pulse 91, respirations 28, blood pressure 105/65. General: Patient was awake, alert and in no acute distress. LABORATORY: Hematology: WBC 15.26, hemoglobin 9.2, hematocrit 30, MCV 101.7. Chemistry: Sodium 143, potassium 3.3, chloride 92, CO2 40, BUN 38, creatinine 0.7, glucose 156, calcium 8.6, phosphorus 5.2, total bilirubin 9.68, AST 123, ALT 85. ASSESSMENT AND PLAN: 1. Acute respiratory failure. Patient is off of BiPAP. He is awake and alert. 2. Acute alcoholic hepatitis. Liver function tests are about the same today. We will continue to monitor. 3. Aspiration pneumonia. Patient is on antibiotics. 4. Alcohol abuse. Patient has been counseled on alcohol cessation. 5. Cirrhosis of the liver. Continue current management. Continue lactulose and Xifaxan. We will continue to follow. Further plans will be made according to his progress. Patient is now alert. He is being transferred to medical floor and his diet has been advanced. I have discussed this case with Dr. Bahena. Dictated by ORQUIDEA Toussaint for Mason Bahena MD cc: ORQUIDEA Raygoza MD
--- NOTE | 2019-08-14 21:39 | PULMONOLOGY PROGRESS NOTE ---
DATE: 08/14/2019 SUBJECTIVE: The patient is awake, alert, and conversant. It is difficult to follow his logic. He is not oriented. OBJECTIVE: Vital Signs: Maximum temperature in the last 24 hours is 100.5 degrees. Current temperature 99.5 degrees. HEENT: Pupils are equal and reactive. Oropharynx appears clear. Neck: Supple. Chest: Reveals shallow breath sounds bilaterally. Cardiac: S1-S2. Abdomen: Obese and soft. Extremities: Reveal 1+ peripheral edema. LABORATORIES: White blood count 15.26, hemoglobin 9.2, platelet count 57,000. Sodium 143, potassium 3.3, chloride 92, bicarbonate 40, BUN 38, creatinine 0.7. Arterial blood gas on nasal cannula, pH 7.54, pCO2 of 55, pO2 of 72 with a lactate of 2.5. IMPRESSION: A 49-year-old with: 1. Acute hypoxemic respiratory failure. 2. Hypercapnic respiratory failure. 3. Liver failure with alcoholic hepatitis. 4. Improving mental status. 5. Pneumonia. 6. Morbid obesity with a body mass index greater than 50. PLAN: 1. Cycle BiPAP at bedtime and p.r.n. 2. Continue nasal cannula as tolerated. 3. Continue bronchodilators. cc: Leonel Andrade MD
[2019-08-15] MEDS: ZOSYN 3.375 GM in NS 50 ML IV SCH ×4 (00:58→22:09)
[2019-08-15] MEDS: LACTULOSE PO SCH ×5 (02:54→22:52)
[2019-08-15] MEDS: DUONEB (A & A) INH SCH ×4 (04:01→23:05)
[2019-08-15] MEDS: ZYVOX 600 MG/D5W 600 MG/300 ML IVPB IV SCH ×2 (05:14→17:56)
[2019-08-15] MEDS: PROTONIX IV SCH ×2 (06:39→17:55)
[2019-08-15] MEDS: SOLU-MEDROL IV SCH (06:40)
[2019-08-15 08:24] LABS: INR 2.1; PROTIME 24.1 Seconds (11.0-16.0)
[2019-08-15 08:44] LABS: ESTIMATED GFR > 60
[2019-08-15 08:49] LABS: BASO# 0.03 X1000 (0.0-0.2); BASO% 0.2 % (0.0-0.8); EOS# 0.01 X1000 (0.0-0.7); EOS% 0.1 % (0.0-10.0); HEMOGLOBIN 8.8 g/dL (14.0-18.0); IMM GRAN# 0.25 X1000 (0.0-0.04); IMM GRAN% 1.7 % (0.0-0.5); LYMPH# 1.11 X1000 (1.2-3.4); LYMPH% 7.5 % (20.5-51.1); MCH 30.9 PG (27-31); MCHC 30.3 g/dL (33-37); MCV 101.8 FL (81-99); MONO# 2.43 X1000 (0.11-0.59); MONO% 16.4 % (1.7-9.3); MPV 11.4 FL (7.4-10.4); NEUT# 11.01 X1000 (1.4-6.5); NEUT% 74.1 % (42.2-75.2); PLT 54 X1000 (130-400); RBC 2.85 XMIL (4.7-6.1); RDW 21.3 % (11.5-14.5); WBC 14.84 X1000 (4.8-10.8)
[2019-08-15 08:53] LABS: AGAP 11; ALB/GLOB RATIO 0.8; ALBUMIN 2.7 g/dL (3.5-5.0); ALKALINE PHOSPHATASE 55 U/L (32-122); BUN 55 mg/dL (8-22); CALCIUM 8.8 mg/dL (8.8-10.2); CHLORIDE 93 mmol/L (98-107); COSMO 305; GLUCOSE 149 mg/dL (70-104); GOT 106 U/L (10-34); GPT 82 U/L (10-44); PHOSPHORUS 6.5 mg/dL (2.7-4.5); POTASSIUM 3.5 mmol/L (3.5-5.1); SODIUM 144 mmol/L (136-145); TCO2 40 mmol/L (25-35); TOTAL BILIRUBIN 11.75 mg/dL (0.20-1.00); TOTAL PROTEIN 6.2 g/dL (6.3-8.3)
[2019-08-15] MEDS: MUCOMYST 20% INH SCH ×2 (10:22→23:05)
[2019-08-15] MEDS: THIAMINE 100 MG in NS 50 ML IV SCH (11:20)
[2019-08-15] MEDS: XIFAXAN PO SCH ×3 (11:21→22:52)
[2019-08-15] MEDS: ALDACTONE PO SCH (11:21)
[2019-08-15] MEDS: THERA M PLUS PO SCH (11:22)
[2019-08-15] MEDS: LASIX IV SCH (11:22)
[2019-08-15] MEDS: VITAMIN K PO SCH (11:52)
[2019-08-15 11:56] LABS: BANDS 2 % (0-1); LYMPHS 7 % (21-51); MONO 3 % (1-9); NRBC 10 % (0-0); SEGS 80 % (42-75)
[2019-08-15 11:58] LABS: HYPOCHROM 1+
[2019-08-15] MEDS ORDERED: ATIVAN IV PRN (17:14)
[2019-08-15] MEDS: SODIUM CHLORIDE 0.9% INJ SCH (17:56)
--- NOTE | 2019-08-15 18:57 | GASTROENTEROLOGY PROGRESS NOTE ---
DATE: 08/15/2019 SUBJECTIVE: He was transferred to the medical floor. Per nurse, he is confused. At the time of my visit Physical Therapy was working with him. There were several family members at the bedside. OBJECTIVE: Vital signs: Temperature 98.7 degrees, pulse 79, respirations 16, blood pressure 93/54. Generally the patient is awake, but he is confused. Physical Therapy is starting to work with him. Per nurse report he is only eating bites of his food. LABORATORY DATA: Hematology: WBC 14.84, hemoglobin 8.0, hematocrit 29.0, MCV 101.8, platelets 54,000. Chemistry: Sodium 144, potassium 3.5, chloride 93, CO2 is 40, BUN 55, creatinine 1.0, glucose 149, total bilirubin 11.75, AST 106, ALT 82, alkaline phosphatase 55. ASSESSMENT AND PLAN: 1. Acute respiratory failure. He is using bilevel positive airway pressure at night. 2. Acute alcoholic hepatitis. Liver function tests continue to be elevated. Bilirubin slightly worse, but AST and ALT slightly better today. 3. Aspiration pneumonia. He is on antibiotics. 4. Alcohol abuse. The patient has been counseled on alcohol cessation. 5. Cirrhosis of the liver. Continue lactulose and Xifaxan. Nurse states she is having problems with him taking the lactulose. Recommend she maybe mix it with some juice. 6. Further plans to be made according to his progress. I have discussed this case with Dr. Bahena. Dictated by ORQUIDEA Toussaint for Mason Bahena MD cc: ORQUIDEA Raygoza MD
--- NOTE | 2019-08-15 19:39 | PROGRESS NOTE ---
DATE: 08/15/2019 SUBJECTIVE: This morning, Mr. Delacruz referred to be doing a little better. He looked more alert and more conversational; however, he was not making a whole lot of sense of what he was saying. The family members were at the bedside at the time of the encounter. OBJECTIVE: Vital signs: Blood pressure is 128/69, pulse of 87, respirations 20, temperature is 98.6 degrees. General: Mr. Delacruz is a 49-year-old gentleman. He is in bed. He does not seem to be in any cardiopulmonary distress. HEENT: Mucosa is pink and moist. Positive icterus. Chest: Good air entry bilaterally. Few crackles posteriorly. Cardiovascular: Regular rate and rhythm. Abdomen: Soft. It is distended, but nontender. There is a large umbilical hernia noted. Bowel sounds present, but hypoactive. Extremities: About 2+ pedal edema. 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 Follows basic commands; however, he is disoriented to place and to time. LABORATORY DATA: WBC is 14.84, hemoglobin is 8.8, platelet count of 54,000. Chemistry is also reviewed and unremarkable. LFTs are still minimally elevated, but getting better patient. Patient's inputs and outputs: Urine output is 800, currently negative balance over 22,000. ASSESSMENT: 1. Acute hypoxemic respiratory failure, improved. Patient is currently just on nasal cannula. 2. Acute alcohol hepatitis. The patient is on methylprednisone. 3. Altered mental status, secondary to global encephalopathy, presumably from hepatic encephalopathy. However, other possible etiologies could include alcohol withdrawal, metabolic encephalopathy from severe hyponatremia on presentation, and vitamin deficiency. 4. Aspiration pneumonia. Patient is on Zyvox and Zosyn. Today is day 7. 5. Severe hyponatremia on presentation, resolved. 6. Alcohol use and abuse prior to presentation. Patient is counseled. 7. Fluid overload secondary to cirrhosis of the liver. Patient is on Lasix with spironolactone. 8. Cardiomegaly with pulmonary edema, secondary to congestive heart failure with preserved ejection fraction. 9. Large ventral hernia noted. 10. Cirrhosis of the liver due to alcohol abuse, complicated with ascites fluid overload, thrombocytopenia, borderline splenomegaly, and coagulopathy. In general, I think Mr. Delacruz's mentation continues to be progressively getting better. We are going to continue with the lactulose and rifaximin, complete the course of the antimicrobial therapy, and daily evaluation. We will get physical therapy to start working with him. cc: Lavon Avina MD MTDD
--- NOTE | 2019-08-15 21:50 | PROGRESS NOTE ---
DATE: 08/15/2019 We appreciated progress of care, complications, change in diagnosis, and instructions to patient. SUBJECTIVE: We note the level of consciousness, bed/chair position, family present if any, level of lethargy, feelings of symptoms, and changes from baseline condition/symptoms. Patient is lying in bed with nasal cannula O2 at 2 L with no acute distress noted. Patient is alert with family at bedside. OBJECTIVE: Vital Signs: Temperature 99.3, pulse 86, respirations 16, blood pressure 125/76, O2 saturation 98. HEENT: Pupils are equal and reactive. Oropharynx appears clear. Neck: Supple. Chest: Reveals shallow breath sounds bilaterally. Cardiac: S1 and S2. Abdomen: Obese and soft. Extremities: Trace edema bilaterally. MANAGEMENT: [id number] evaluation by Dr. Gutierrez. ORQUIDEA did scribing only. LABORATORY: White blood cells 14.84. Red blood cells 2.85. Hemoglobin 8.8. Hematocrit 29.0. Platelet count 54. Hypochromia 1 plus. PT 24.1. INR 2.10. Chest x-ray on 08/14/2019 revealed critically low lung volumes. ASSESSMENT: 1. Acute hypoxemic respiratory failure. 2. Hypercapnic respiratory failure. 3. Liver failure with alcoholic hepatitis. 4. Pneumonia. 5. Morbid obesity. BMI greater than 50. PLAN: 1. Continue BiPAP at bedtime and p.r.n. 2. Continue supplemental O2. 3. Continue bronchodilators, antibiotics and steroids as prescribed. 4. Continue GI prophylaxis with Protonix 40 mg IV every 12 hours scheduled. Input was appreciated from admitting MD and other teams on the case. Dictated by ORQUIDEA Bull for Dorcas Gutierrez MD cc: ORQUIDEA Bull MD
[2019-08-16] MEDS: LACTULOSE PO SCH ×4 (01:23→21:22)
[2019-08-16] MEDS: DUONEB (A & A) INH SCH ×4 (03:30→22:39)
[2019-08-16] MEDS: ZOSYN 3.375 GM in NS 50 ML IV SCH ×4 (04:31→21:22)
[2019-08-16] MEDS: PROTONIX IV SCH ×2 (05:09→17:23)
[2019-08-16] MEDS: ZYVOX 600 MG/D5W 600 MG/300 ML IVPB IV SCH ×2 (05:09→19:22)
[2019-08-16] MEDS: SODIUM CHLORIDE 0.9% INJ SCH ×2 (05:09→17:23)
[2019-08-16] MEDS: SOLU-MEDROL IV SCH (05:09)
[2019-08-16] MEDS ORDERED: ZOSYN ONE (08:36)
[2019-08-16 08:47] LABS: AGAP 14; ALB/GLOB RATIO 0.7; ALBUMIN 2.9 g/dL (3.5-5.0); ALKALINE PHOSPHATASE 65 U/L (32-122); BUN 65 mg/dL (8-22); CALCIUM 9.4 mg/dL (8.8-10.2); CHLORIDE 92 mmol/L (98-107); COSMO 310; ESTIMATED GFR > 60; GLUCOSE 183 mg/dL (70-104); GOT 98 U/L (10-34); GPT 86 U/L (10-44); POTASSIUM 4.1 mmol/L (3.5-5.1); SODIUM 144 mmol/L (136-145); TCO2 38 mmol/L (25-35); TOTAL PROTEIN 6.8 g/dL (6.3-8.3)
[2019-08-16 09:02] LABS: TOTAL BILIRUBIN 15.58 mg/dL (0.20-1.00)
[2019-08-16 09:11] LABS: HEMATOCRIT 29.3 % (42.0-52.0); HEMOGLOBIN 9.6 g/dL (14.0-18.0); MCH 33.8 PG (27-31); MCHC 32.8 g/dL (33-37); MCV 103.2 FL (81-99); MPV 11.7 FL (7.4-10.4); RBC 2.84 XMIL (4.7-6.1); RDW 22.5 % (11.5-14.5); WBC 23.98 X1000 (4.8-10.8)
[2019-08-16] MEDS: LASIX PO SCH (10:10)
[2019-08-16] MEDS: ALDACTONE PO SCH (10:10)
[2019-08-16] MEDS: THERA M PLUS PO SCH (10:10)
[2019-08-16] MEDS: THIAMINE 100 MG in NS 50 ML IV SCH (10:10)
[2019-08-16] MEDS: VITAMIN K PO SCH (10:11)
[2019-08-16] MEDS: XIFAXAN PO SCH ×2 (10:11→21:22)
[2019-08-16] MEDS: MUCOMYST 20% INH SCH ×2 (10:46→22:39)
--- NOTE | 2019-08-16 15:04 | Diag Imaging Result Doc PS360 ---
EXAM: KUB ABDOMEN HISTORY: SBO TECHNIQUE: Three views COMPARISON: None. FINDINGS: There are multiple overly distended small bowel loops filled with air. There is feculent material within the distal small bowel loops. No organomegaly. No foreign body. No abnormal calcifications. IMPRESSION: High-grade distal small bowel obstruction Electronically signed by Bryson Fabian 08/16/2019 3:02 PM
--- NOTE | 2019-08-16 15:22 | PROVIDER PROGRESS NOTE ---
Progress Note We appreciated progress of care, complications, change in diagnosis, and instructions to patient. SUBJECTIVE: We note the level of consciousness, bed/chair position, family present if any, level of lethargy, feelings of symptoms, and changes from baseline condition/symptoms. Patient is lying in bed with nasal cannula O2 at 2 L with no acute distress noted. Patient is alert with family at bedside. OBJECTIVE: Vital Signs: Temperature 97.9, pulse 96, respirations 16, blood pressure 151/93, O2 saturation 95% O2 @ 5 L/NC. HEENT: Pupils are equal and reactive. Oropharynx appears clear. Neck: Supple. Chest: Reveals shallow breath sounds bilaterally. Cardiac: S1 and S2. Abdomen: Obese and soft. Extremities: Trace edema bilaterally. MANAGEMENT: [id number] evaluation by Dr. Gutierrez. ORQUIDEA Bull did scribing only. LABORATORY: White blood cells 23.98. Red blood cells 2.84. Hemoglobin 9.6. Hematocrit 29.3. Platelet count 48. Hypochromia 1 plus. PT 24.1. INR 2.10. Sodium 144, K+ 4.1, chloride 92, carbon dioxide 38. Abdominal xray 08/16/2019 revealed high grade distal small bowel obstruction. Chest x-ray on 08/14/2019 revealed critically low lung volumes. ASSESSMENT: 1. Acute hypoxemic respiratory failure. 2. Hypercapnic respiratory failure. 3. Liver failure with alcoholic hepatitis. 4. Pneumonia. 5. Morbid obesity. BMI greater than 50. PLAN: 1. Continue BiPAP at bedtime and p.r.n. 2. Continue supplemental O2. 3. Continue bronchodilators, antibiotics and steroids as prescribed. 4. Continue GI prophylaxis with Protonix 40 mg IV every 12 hours scheduled. 5. Will tirate supplemental O2 per patient response/demand, and protocol. Input was appreciated from admitting MD and other teams on the case.
[2019-08-16] MEDS ORDERED: HALDOL IV ONE (16:26)
[2019-08-16] MEDS ORDERED: ATIVAN IV PRN (16:27)
[2019-08-16] MEDS: NS 1,000 ML IV SCH (16:35)
--- NOTE | 2019-08-16 18:28 | Diag Imaging Result Doc PS360 ---
EXAM: CHEST-PORTABLE HISTORY: tube placement TECHNIQUE: Chest abdomen single view COMPARISON: Abdomen performed earlier FINDINGS: A nasogastric tube overlies the esophagus and stomach. Distended small bowel loops remain. IMPRESSION: Nasogastric tube in the stomach Electronically signed by Bryson Fabian 08/16/2019 6:25 PM
--- NOTE | 2019-08-16 18:46 | PROGRESS NOTE ---
DATE: 08/16/2019 SUBJECTIVE: This morning Mr. Delacruz refers to be doing okay. His brother was at the bedside at the time of the encounter. Per the nursing staff, Mr. Delacruz has been quite more confused since he got transferred up to the floor. I understand last night he did not want to take any of his medications. OBJECTIVE: Current vital signs: Blood pressure is 151/93, pulse of 96, respirations 16, temperature 97.8 degrees. The patient is saturating 95%. On general exam, Mr. Delacruz is a 49- year-old morbidly obese gentleman. He is in bed. He was on BiPAP at the time of the encounter. Mucosa was slightly dry. Anicteric. Acyanotic. Neck is supple. There is no JVD. Chest: There is good air entry bilaterally. Few crackles posteriorly.Cardiovascular: Regular rate and rhythm. There are no murmurs, no rubs, no gallops. GI: Abdomen is soft. It is distended but nontender. Bowel sounds are present but remarkably reduced. There is a large umbilical hernia noted. Extremities: About 1 to 2+ pedal edema, but it looks like getting a lot better. CUSTOMER SERVICE ADMINISTRATOR: The patient is lethargic, but easily arousable. He is easily oriented to his name. He knows he is in [place] but he does not know he is in the hospital, and he was not able to tell me the date. He was, however, able to move his extremities upon command. The patient's intake and output: Urine output was 2500. He is currently negative balance over 24,000. LABORATORY DATA: WBC is up to 23.98, hemoglobin is 9.6, platelet count of 48,000. Chemistry is also reviewed. BUN is up to 65, total bilirubin is 15.58. AST and ALT are, however, trending down. Ammonia level is 28. DIAGNOSTIC DATA: No imaging studies for this morning. MEDICATIONS: The patient's medications have all been reviewed. He is on Zyvox and today is day 5; prednisone; Zosyn, today is day 10. ASSESSMENT: 1. Acute hypoxemic respiratory failure. The patient continues to be cycling between nasal cannula and uses bilevel positive airway pressure at night. 2. Acute alcohol hepatitis. The patient is on methylprednisone. 3. Altered mental status, presumably from hepatic encephalopathy coupled with possible other etiologies including alcohol withdrawal, metabolic encephalopathy from severe hyponatremia on presentation and vitamin deficiencies. 4. Aspiration pneumonitis. The patient is on Zosyn; today is day 10. Zyvox; today is day 5. 5. Severe hyponatremia. On admission sodium was 108. We think this was secondary to beer potomania. Sodium has normalized. 6. Alcohol use and abuse prior to hospitalization. The patient has been counseled. 7. Fluid overload secondary to cirrhosis of the liver. The patient is currently negative balance of over 24,000. He is actually looking intravascular depleted. 8. Large ventral hernia noted. 9. Cirrhosis of the liver secondary to alcohol abuse, complicated with ascites, fluid overload, thrombocytopenia, borderline splenomegaly and coagulopathy. 10. Clinical volume depletion. The patient's BUN continues to be going up. Mucous membranes are fairly dry and his urine output has been more than 24,000 during the hospital course. We are going to discontinue his diuretics for today, gently hydrate him overnight and re-evaluate him. 11. Elevated white cell count. The patient's white cell count has jumped up to 23,000 this morning. He seems to be a little bit more altered. We are going to get a chest x-ray. We will also do blood cultures and urine cultures to make sure that he has not developed any new infectious process that the antibiotics are not covering. 12. Distended abdomen, presumably from the ascites; however, an underlying constipation cannot be ruled out. Mr. Delacruz has not had a bowel movement documented since 08/13. Part of it is because he is not drinking his lactulose. We will await a KUB, and later on re-evaluate him. If he has continued to not take his medications, then we will put in an nasogastric tube and get his lactulose down the nasogastric tube. cc: Lavon Avina MD
[2019-08-16 20:05] LABS: URINE SOURCE CATH
[2019-08-16 20:12] LABS: BILIRUBIN URINE SMALL (NEGATIVE); BLOOD URINE MODERATE (NEGATIVE); COLOR YELLOW; GLUCOSE URINE NEGATIVE (NEGATIVE); KETONE URINE NEGATIVE (NEGATIVE); LEUKOCYTES URINE MODERATE (NEGATIVE); NITRITE URINE NEGATIVE (NEGATIVE); PH URINE 5.5; PROTEIN URINE TRACE mg/dL (NEGATIVE); SP GRAVITY URINE 1.023; TURBIDITY URINE TURBID (CLEAR); UROBILINOGEN URINE NORMAL (NORMAL)
[2019-08-16 20:49] LABS: UR EPITHELIAL CELLS <10 /HPF (<10); URINE BACTERIA NEGATIVE /HPF; URINE CASTS NONE SEEN; URINE CRYSTALS NONE SEEN; URINE RBC TNTC /HPF (<10); URINE SMALL ROUND CELLS TRANS PRESENT; URINE YEAST PRESENT
[2019-08-17] MEDS: NS 1,000 ML IV SCH ×2 (00:38→18:41)
[2019-08-17] MEDS: LACTULOSE PO SCH ×3 (00:38→08:15)
[2019-08-17] MEDS: DUONEB (A & A) INH SCH ×4 (03:53→21:10)
[2019-08-17] MEDS: ZOSYN 3.375 GM in NS 50 ML IV SCH (05:50)
[2019-08-17] MEDS: PROTONIX IV SCH ×2 (05:50→17:50)
[2019-08-17] MEDS: SOLU-MEDROL IV SCH (05:50)
--- NOTE | 2019-08-17 07:21 | Diag Imaging Result Doc PS360 ---
EXAM: CHEST-1 VIEW 08/17/2019 HISTORY: SOB TECHNIQUE: AP portable at 0613 COMMENT: There is an NG tube with its tip below the diaphragm presumably in the stomach. The inspiration is suboptimal and less optimal than on 08/14/2019. There are no focal pulmonary opacities. There appears to be gaseous dilatation of the colon and small bowel. IMPRESSION: Poor inspiration. Ileus. Electronically signed by Don Walker 08/17/2019 7:19 AM
[2019-08-17 08:13] LABS: BASO# 0.04 X1000 (0.0-0.2); BASO% 0.1 % (0.0-0.8); EOS# 0.07 X1000 (0.0-0.7); EOS% 0.2 % (0.0-10.0); HEMATOCRIT 29.3 % (42.0-52.0); HEMOGLOBIN 8.9 g/dL (14.0-18.0); IMM GRAN# 0.17 X1000 (0.0-0.04); IMM GRAN% 0.5 % (0.0-0.5); LYMPH# 1.24 X1000 (1.2-3.4); LYMPH% 3.8 % (20.5-51.1); MCH 31.8 PG (27-31); MCHC 30.4 g/dL (33-37); MCV 104.6 FL (81-99); MONO% 11.3 % (1.7-9.3); NEUT% 84.1 % (42.2-75.2); PLT 66 X1000 (130-400); RDW 24.6 % (11.5-14.5); WBC 32.82 X1000 (4.8-10.8)
[2019-08-17] MEDS: ZYVOX 600 MG/D5W 600 MG/300 ML IVPB IV SCH ×2 (08:15→21:15)
[2019-08-17] MEDS: ALDACTONE PO SCH (08:16)
[2019-08-17] MEDS: THERA M PLUS PO SCH (08:16)
[2019-08-17] MEDS: XIFAXAN PO SCH ×2 (08:16→21:15)
[2019-08-17] MEDS: LASIX PO SCH (08:16)
[2019-08-17] MEDS: VITAMIN K PO SCH (08:17)
[2019-08-17 08:51] LABS: LYMPHS 4 % (21-51); MONO 10 % (1-9); NRBC 2 % (0-0); SEGS 86 % (42-75)
[2019-08-17] MEDS: THIAMINE 100 MG in NS 50 ML IV SCH (08:51)
[2019-08-17 08:52] LABS: ANISOCYTOSIS 3+; HYPOCHROM 1+; POLYCHROM 1+
[2019-08-17 08:53] LABS: LARGE PLATELETS OCCASIONAL
[2019-08-17 08:54] LABS: POIKILOCYTOSIS 1+
[2019-08-17 09:18] LABS: ALB/GLOB RATIO 0.7; ALBUMIN 2.4 g/dL (3.5-5.0); CALCIUM 9.9 mg/dL (8.8-10.2); MAGNESIUM 2.4 mg/dL (1.5-2.7); PHOSPHORUS 6.1 mg/dL (2.7-4.5); POTASSIUM 3.7 mmol/L (3.5-5.1); TOTAL BILIRUBIN 13.34 mg/dL (0.20-1.00); TOTAL PROTEIN 5.9 g/dL (6.3-8.3)
[2019-08-17] MEDS: MUCOMYST 20% INH SCH ×2 (10:50→21:10)
[2019-08-17] MEDS ORDERED: NS 1,000 ML IV ONE ×3 (11:03→13:45)
[2019-08-17] MEDS ORDERED: VITAMIN K 10 MG in NS 50 ML IV ONE (11:04)
[2019-08-17 11:40] LABS: ALLEN TEST YES; BE 5.5 mmoll (-3.0-3.0); BLOOD TYPE ARTERIAL; HCO3-(ACT) 29.1 mmoll (20.0-26.0); METHB 0.7 % (0.0-1.5); O2(CT) 11.4 mL/dL (15.0-23.0); O2HB 91.4 % (95.0-99.0); PCO2(98.6) 46 mmHg (35-45); PO2(98.6) 63 mmHg (60-100); SAMPLE BLOOD; THB 8.8 g/dL (11.5-17.4); pH(98.6) 7.43 (7.35-7.45)
[2019-08-17] MEDS: LEVAQUIN 250 MG/D5W 250 MG/50 ML IVPB IV SCH (11:40)
[2019-08-17 11:41] LABS: MODALITY CANNULA
[2019-08-17] MEDS ORDERED: TYLENOL PR ONE (11:49)
--- NOTE | 2019-08-17 11:55 | Diag Imaging Result Doc PS360 ---
EXAM: KUB ABDOMEN 08/17/2019 HISTORY: SBO TECHNIQUE: KUB COMMENT: There is marked dilatation of small bowel loops with fecalized contents in the midabdomen. There is gaseous dilatation of the transverse and sigmoid colon. The stomach is not distended. Compared to 08/16/2019 the appearance has not changed significantly. IMPRESSION: Partial small bowel obstruction versus ileus. Electronically signed by Don Walker 08/17/2019 11:53 AM
[2019-08-17] MEDS: MERREM 500 MG in NS 50 ML IV SCH (12:06)
[2019-08-17] MEDS ORDERED: LACTULOSE MISC SCH (13:00)
[2019-08-17] MEDS: LEVOPHED 8 MG in D5 1/2 NS 250 ML IV SCH ×3 (13:59→23:08)
[2019-08-17] MEDS ORDERED: NON-FORMULARY MED PR SCH (14:00)
--- NOTE | 2019-08-17 14:25 | PROGRESS NOTE ---
DATE: 08/17/2019 SUBJECTIVE: I have seen and examined Mr. Delacruz today. The mother and brother were both at the bedside at the time of the encounter. Mr. Delacruz continues to be quite confused and less communicative today. NG tube was put in yesterday because of suspicion of ileus versus SBO as documented about 1999 upper GI material was removed once NG tube was put in. The patient has not had a bowel movement today. According to the family members, Mr. Delacruz continues to be less responsive and he seems to be having fever. OBJECTIVE: Current vital signs: Blood pressure is 138/104, pulse of 113, respirations 22, temperature 99.5 degrees, however, the patient feels warm to touch, saturating about 92%. I have just been notified that blood pressure has been even lower with systolic of less than 90. We are going to give him a bolus of normal saline. General: Mr. Delacruz is a 49-year-old gentleman. He is morbidly obese. He is in bed. He is very confused. HEENT: Mucosa is pink, but very icteric. Neck: No JVD. Chest: Air entry is bilaterally reduced. A few crackles in the posterior lung gutierres. Cardiovascular: Tachycardic but no murmurs, no rubs, no gallops. GI: Soft. He seems tender everywhere. The patient will grimace the face upon palpation. It is remarkably protuberant. There is some edema in the lateral aspect of the abdominal wall. The patient does not follow any commands for him to move to see if he has any shifting dullness. Extremities: No pedal edema. YARROW GATHERER: Patient is awake. He is verbalizing some non comprehensive words. He does not follow any commands. He will, however, move extremities upon painful stimulation. INTAKE AND OUTPUT: The patient's urine output was 1550. Patient is currently negative balance, over 26,000. NG tube output was about 1999 yesterday. IMAGING STUDIES: This morning a chest x-ray shows poor inspiration versus ileus. LABORATORY DATA: WBC has gone up to 32.83, hemoglobin is 8.9, platelet count is 66,000. Chemistry is also reviewed. Creatinine has gone up to 2.0. ASSESSMENT: 1. Worsening altered mental status associated with elevated white cell count, evidence of systemic inflammatory response, all concerning for some infection. 2. The patient seems to have abdominal pain. I am unsure if he has developed SBP or there is any other source. Chest x-ray did not show anything concerning this morning. We will get a CT scan of the abdomen and pelvis. The patient was already on Zosyn for over 11 days and Zyvox for 6 days. However, the white cell count has been trending up, so I have discontinued the Zosyn this morning and put him on meropenem to cover for possible extended spectrum betalactamase (ESBL). 3. Distended abdomen with KUB yesterday suggesting high-grade small bowel obstruction versus ileus. NG tube was put in yesterday. This morning patient's abdomen continues to be remarkably distended and he seems to be having tenderness whenever you palpate him. Will get Surgery to evaluate him as well. We will get a CT scan of the abdomen and pelvis. 4. Acute hypoxemic respiratory failure. This is improved. Patient continues to cycle between nasal cannula and BiPAP at night. 5. Acute alcohol hepatitis on presentation. Patient is on methylprednisolone. The liver enzymes have actually been trending down. 6. Severe hyponatremia on presentation, improved. 7. Aspiration pneumonitis. Patient would be day 11 on Zosyn today. Zosyn has been switched to meropenem. 8. Alcohol use and abuse prior to hospitalization with suspicion of alcohol withdrawal. 9. Fluid overload secondary to cirrhosis of the liver. Patient is currently over 26,000 negative balance. He is still edematous, but I think he is not intravascularly depleted. We have discontinue the Lasix and spironolactone and have placed him on gentle fluids. 10. Large ventral her umbilical hernia. The initial scan did not seem to suggest any complication with this, however, with the tenderness on the abdominal exams and the KUB yesterday which suggest small bowel obstruction, we are going to get Surgery to evaluate him. 11. Cirrhosis of the liver secondary to alcohol abuse complicated with ascites, fluid overload, thrombocytopenia, borderline splenomegaly and coagulopathy. 12. Clinical volume depletion. Despite the patient looks edematous, it is perceived that he is intravascularly depleted. He has a negative balance over 26,000 L. 13. Acute kidney injury, presumably from intravascular depletion. We are going to get the urinalysis. The patient already has a Archer catheter in. He is making urine, so I do not think he has an obstructive uropathy. We will get a CT scan of the abdomen will and pelvis which will also give us some idea if there is any obstructive uropathy in the upper tract. Nephrology will be consulted. PLAN: In general, Mr. Delacruz is seems to be getting more critical today. He is febrile. White cell count is elevated. He seems more altered and he is having abdominal tenderness on physical exams. A KUB yesterday seems to suggest SBO. We are pending another KUB this morning. This has not been done yet. We will go ahead and actually do a CT scan of the abdomen and pelvis. We are pending Surgery to evaluate him. The patient is already being seen by Pulmonary Medicine as well as GI. White cell count has remarkably gone up, despite the patient is on steroid. I still think that this could be a reflection of an infection that he has developed. I have discontinued the Zosyn, which he has been on for 11 days, to meropenem to cover the possibility of ESBL. Blood cultures and urine cultures were done from yesterday and we are pending the results. Mr. Delacruz will be moved from the floor to the critical care unit for close monitoring. Family members at bedside notified Critical time 1 hour cc: MD RORY Buchanan
[2019-08-17 15:51] LABS: UR CREAT RANDOM 110.9 mg/dL (14-26)
--- NOTE | 2019-08-17 17:54 | Diag Imaging Result Doc PS360 ---
EXAM: CT ABDOMEN/PELVIS W/O CONTRAST 08/17/2019 HISTORY: abdomen pain. SBO. Septic TECHNIQUE: This exam was performed using automated exposure control, adjustment of mA or kV according to patient size, and/or use of iterative reconstruction technique. COMMENT: The current study is compared with 08/07/2019. There is dependent atelectasis versus pneumonia in both lower lobes. This was also present previously but appears somewhat worse particularly with regard to the right lower lobe. There is some subcutaneous edema in the flanks. This is actually improved somewhat since the previous study. There is ascites which was also present previously. The gallbladder is hyperdense with possible milk of calcium bile. This was also the case previously. There is an NG tube in the stomach. The spleen is not enlarged. There are markedly distended small bowel loops in the abdomen. This was not the case on the previous study. There are no nondistended small bowel loops demonstrated. There is some gas and stool in the ascending colon. An there is considerable gas in the transverse colon. Some contents are seen in the descending colon which is not distended. There is a large fat-containing umbilical hernia which also contains some ascitic fluid. The appendix is normal in appearance. There is no evidence of hydronephrosis or nephrolithiasis. There is a Archer catheter in the bladder. There is subcutaneous edema over the left thigh and buttock. This is asymmetrical with respect to the opposite side. The regional skeleton appears to be intact. IMPRESSION: 1. Right pleural effusion and atelectasis versus pneumonia in the lower lobes. 2. Anasarca. Ascites. 3. Partial obstruction of the distal small bowel versus ileus. 4. Milk of calcium bile. Electronically signed by Don Walker 08/17/2019 5:51 PM
[2019-08-17] MEDS ORDERED: EPINEPHRINE 4 MG in NS 250 ML IV SCH (18:00)
[2019-08-17] MEDS ORDERED: LOPRESSOR IV ONE (18:35)
[2019-08-17] MEDS ORDERED: LOPRESSOR ONE (18:40)
[2019-08-17] MEDS: NEO-SYNEPHRINE 50 MG in NS 250 ML IV SCH (18:41)
[2019-08-17 18:48] LABS: ALLEN TEST YES; BE -3.3 mmoll (-3.0-3.0); BLOOD TYPE ARTERIAL; HCO3-(ACT) 22.3 mmoll (20.0-26.0); O2(CT) 13.8 mL/dL (15.0-23.0); O2HB 95.8 % (95.0-99.0); PCO2(98.6) 35 mmHg (35-45); PO2(98.6) 84 mmHg (60-100); SAMPLE BLOOD; SAO2 99.9 % (95.0-100.0); SRATE 16 BPM; THB 10.2 g/dL (11.5-17.4); pH(98.6) 7.39 (7.35-7.45)
[2019-08-17 18:52] LABS: MODALITY BI PAP
[2019-08-17] MEDS: LOPRESSOR IV SCH (19:37)
--- NOTE | 2019-08-17 20:14 | PROVIDER PROGRESS NOTE ---
Progress Note Progress Note We appreciated progress of care, complications, change in diagnosis, and instructions to patient. SUBJECTIVE: We note the level of consciousness, bed/chair position, family present if any, level of lethargy, feelings of symptoms, and changes from baseline condition/symptoms. Patient is lying in bed with nasal cannula O2 at 2 L with no acute distress noted. Patient is alert with family at bedside. OBJECTIVE: Vital Signs: Temperature 97.9, pulse 96, respirations 16, blood pressure 151/93, O2 saturation 95% O2 @ 5 L/NC. General: Morbidly obese male lying in bed in no acute distress. HEENT: normocephalic, atraumatic, conjunctiva jaundice, pupils equal and sluggishly reactive. Purple to drainage to both eyes. Mucous membranes moist. Skin: Jaundice. Skin warm and dry. Neck: supple, JVD unobserved due to body habitus Cardiovascular: distant. S1S2, regular rate and rhythm. No murmur or gallops. Respiratory: Scattered wheezing and rhonchi throughout anteriorly. Improved from yesterday. Abdomen: obese, slightly firm, nontender, nondistended. Large umbilical hernia that has pitting edema. Bowel sounds hypoactive. : non-inspected, reed in place with hansel urine. Extremities:3+ pitting edema. Better than yesterday. Neurological: unable to assess. Does not follow commands but is moaning to tactile stimuli. MANAGEMENT: [id number] evaluation by Dr. Gutierrez. ORQUIDEA Bull did scribing only. L Laboratory Results 08/16/19 08/17/19 08/17/19 20:00 07:30 07:30 WBC 32.82 H RBC 2.80 L Hgb 8.9 L Hct 29.3 L MCV 104.6 H MCH 31.8 H MCHC 30.4 L RDW Std Deviation 24.6 H Plt Count 66 L D MPV 13.0 H Immature Gran % (Auto) 0.5 Neut % (Auto) 84.1 H Lymph % (Auto) 3.8 L Gulf % (Auto) 11.3 H Eos % (Auto) 0.2 Baso % (Auto) 0.1 Immature Gran # (Auto) 0.17 H Neut # (Auto) 27.60 H Lymph # (Auto) 1.24 Gulf # (Auto) 3.70 H Eos # (Auto) 0.07 Baso # (Auto) 0.04 Segmented Neutrophils 86 H Lymphocytes 4 L Monocytes 10 H Nucleated RBCs 2 H Pathologist Review Hypochromia 1+ Large Platelets OCCASIONAL Polychromasia 1+ Poikilocytosis 1+ Basophilic Stippling OCCASIONAL Anisocytosis 3+ Macrocytosis 3+ Specimen Type Sample Site pH pCO2 pO2 HCO3 Base Excess Oxyhemoglobin ABG O2 Sat (Calculated) ABG O2 Saturation ABG Carboxyhemoglobin ABG Methemoglobin Martní Test A-a O2 Difference Total Hemoglobin Lactate Liter Flow Blood Gas Modality Spontaneous Rate FiO2 % Inspiratory BiPAP Expiratory BiPAP Sodium 144 Potassium 3.7 Chloride 91 L Carbon Dioxide 34 Anion Gap 19 BUN 85 H Creatinine 2.0 H Estimated GFR/1.73 m2 36 BUN/Creatinine Ratio 43 Glucose 110 H Calculated Osmolality 313 Calcium 9.9 Phosphorus 6.1 H Magnesium 2.4 Total Bilirubin 13.34 H AST 81 H ALT 71 H Alkaline Phosphatase 89 Total Protein 5.9 L Albumin 2.4 L Globulin 3.5 Albumin/Globulin Ratio 0.7 Plasma Lactate Urine WBC (Auto) 10-20 A Urine RBC (Auto) TNTC A U Epithel Cells (Auto) <10 Urine Bacteria (Auto) NEGATIVE Ur Eosinophil Smear Urine Crystals NONE SEEN Small Round Cells TRANS PRESENT Urine Casts NONE SEEN Urine Yeast-like Cells PRESENT Ur Random Creatinine Ur Random Sodium Ur Random Urea Nitrogn 08/17/19 08/17/19 08/17/19 11:30 11:35 15:00 WBC RBC Hgb Hct MCV MCH MCHC RDW Std Deviation Plt Count MPV Immature Gran % (Auto) Neut % (Auto) Lymph % (Auto) Gulf % (Auto) Eos % (Auto) Baso % (Auto) Immature Gran # (Auto) Neut # (Auto) Lymph # (Auto) Gulf # (Auto) Eos # (Auto) Baso # (Auto) Segmented Neutrophils Lymphocytes Monocytes Nucleated RBCs Pathologist Review Hypochromia Large Platelets Polychromasia Poikilocytosis Basophilic Stippling Anisocytosis Macrocytosis Specimen Type ARTERIAL Sample Site R RADIAL pH 7.43 pCO2 46 H pO2 63 HCO3 29.1 H Base Excess 5.5 H Oxyhemoglobin 91.4 L ABG O2 Sat (Calculated) 11.4 L ABG O2 Saturation 96.0 ABG Carboxyhemoglobin 4.10 H ABG Methemoglobin 0.7 Martín Test YES A-a O2 Difference 165.0 Total Hemoglobin 8.8 L Lactate 11.10 H* Liter Flow 5.0 Blood Gas Modality CANNULA Spontaneous Rate FiO2 % 40.0 Inspiratory BiPAP Expiratory BiPAP Sodium Potassium Chloride Carbon Dioxide Anion Gap BUN Creatinine Estimated GFR/1.73 m2 BUN/Creatinine Ratio Glucose Calculated Osmolality Calcium Phosphorus Magnesium Total Bilirubin AST ALT Alkaline Phosphatase Total Protein Albumin Globulin Albumin/Globulin Ratio Plasma Lactate 10.2 H* Urine WBC (Auto) Urine RBC (Auto) U Epithel Cells (Auto) Urine Bacteria (Auto) Ur Eosinophil Smear NONE SEEN Urine Crystals Small Round Cells Urine Casts Urine Yeast-like Cells Ur Random Creatinine Ur Random Sodium Ur Random Urea Nitrogn 08/17/19 08/17/19 15:00 18:37 WBC RBC Hgb Hct MCV MCH MCHC RDW Std Deviation Plt Count MPV Immature Gran % (Auto) Neut % (Auto) Lymph % (Auto) Gulf % (Auto) Eos % (Auto) Baso % (Auto) Immature Gran # (Auto) Neut # (Auto) Lymph # (Auto) Gulf # (Auto) Eos # (Auto) Baso # (Auto) Segmented Neutrophils Lymphocytes Monocytes Nucleated RBCs Pathologist Review Hypochromia Large Platelets Polychromasia Poikilocytosis Basophilic Stippling Anisocytosis Macrocytosis Specimen Type ARTERIAL Sample Site R RADIAL pH 7.39 pCO2 35 pO2 84 HCO3 22.3 Base Excess -3.3 L Oxyhemoglobin 95.8 ABG O2 Sat (Calculated) 13.8 L ABG O2 Saturation 99.9 ABG Carboxyhemoglobin 3.20 H ABG Methemoglobin 1.0 Martín Test YES A-a O2 Difference 300.0 Total Hemoglobin 10.2 L Lactate 15.80 H* Liter Flow Blood Gas Modality BI PAP Spontaneous Rate 16 FiO2 % 60.0 Inspiratory BiPAP 18.0 Expiratory BiPAP 6.0 Sodium Potassium Chloride Carbon Dioxide Anion Gap BUN Creatinine Estimated GFR/1.73 m2 BUN/Creatinine Ratio Glucose Calculated Osmolality Calcium Phosphorus Magnesium Total Bilirubin AST ALT Alkaline Phosphatase Total Protein Albumin Globulin Albumin/Globulin Ratio Plasma Lactate Urine WBC (Auto) Urine RBC (Auto) U Epithel Cells (Auto) Urine Bacteria (Auto) Ur Eosinophil Smear Urine Crystals Small Round Cells Urine Casts Urine Yeast-like Cells Ur Random Creatinine 110.9 H Ur Random Sodium 16 Ur Random Urea Nitrogn 331 ASSESSMENT: 1. Acute hypoxemic respiratory failure. 2. Hypercapnic respiratory failure. 3. Liver failure with alcoholic hepatitis. 4. Pneumonia. 5. Morbid obesity. BMI greater than 50. PLAN: 1. Continue BiPAP at bedtime and p.r.n. 2. Continue supplemental O2. 3. Continue bronchodilators, antibiotics and steroids as prescribed. 4. Continue GI prophylaxis with Protonix 40 mg IV every 12 hours scheduled. 5. Will tirate supplemental O2 per patient response/demand, and protocol. Input was appreciated from admitting MD and other teams on the case. Spent minutes 35
[2019-08-17 20:51] LABS: INR 2.46; PROTIME 27.3 Seconds (11.0-16.0)
[2019-08-17] MEDS: SOLU-CORTEF IV SCH (21:15)
--- NOTE | 2019-08-17 21:20 | GENERAL SURGERY CONSULTATION ---
DATE: 08/17/2019 REQUESTING PHYSICIAN: Dr. Avina. SURGEON CONSULTED: Derek Villegas. REASON FOR CONSULTATION: Suspected small-bowel obstruction. HISTORY OF PRESENT ILLNESS: This is a 49-year-old male with history of alcoholism and liver disease who was admitted on 08/05/2019 with complaints of decreased appetite, shortness of breath, worsening lower extremity edema and generalized deconditioning. During this hospitalization he has been treated for respiratory failure, acute alcoholic hepatitis now on Solu-Medrol, severe hyponatremia, aspiration pneumonia, fluid overload and acute kidney injury. Over the last 24 hours, he has had worsening abdominal distention with abdominal pain, worsening mental status as well as respiratory status. He has now been transferred to the ICU. He is on BiPAP. He is really unresponsive at this time. NG tube was placed yesterday and 2000 mL has been suctioned out since then. He did have a bowel movement recorded yesterday. PAST MEDICAL HISTORY: As gleaned from the chart is hyperlipidemia, gout, gastroesophageal reflux disease, morbid obesity, alcoholism, liver disease, chronic umbilical hernia. PAST SURGICAL HISTORY: Nasal surgery, testicular surgery. ALLERGIES: No known drug allergies. CURRENT MEDICATIONS: Mucomyst, DuoNeb, Levaquin, Zyvox, Ativan, Merrem, Solu-Medrol, Levophed, Zofran, Protonix, rifaximin, thiamine. FAMILY HISTORY: Reviewed and does not appear contributory to current condition. SOCIAL HISTORY: Reportedly drinks 10 to 12 beers per day for many years. No reported illicit drug use. No tobacco use. He is . REVIEW OF SYSTEMS: Unobtainable. PHYSICAL EXAMINATION: Vital Signs: Temperature 100.4 degrees, pulse 110, O2 saturation 100%, blood pressure 99/48, respiratory rate 21. Urine output was 1550 mL yesterday. NG tube output 2000 mL. General: He is obtunded, does not respond to physical stimuli. Respiratory: He is on BiPAP. CV: Tachycardic and regular. HEENT: Normocephalic, atraumatic. Extraocular muscles were not evaluated. He does have scleral icterus. GI: Soft, obese, probable fluid wave appreciated. No tenderness appreciable although the exam is limited by his mental status. He does have a chronic appearing umbilical hernia with a fluid sac but no bowel contents. It is reducible easily. There are chronic skin changes with thickening and induration. No leakage. Organomegaly is not able to be assessed. Extremities: Diffusely edematous. Musculoskeletal: Cannot assess. Skin: Warm and dry. LABORATORY: White cell count 32,000, hemoglobin 8.9, hematocrit 29, platelet count 66,000. INR from 2 days ago 2.1, pH 7.4, pCO2 46, PaO2 63, bicarb 29, base excess 5, lactate 11, sodium 144, potassium 3.7, chloride 91, CO2 34, BUN 85, creatinine 2, glucose 110, total bilirubin is 13, AST 81, ALT 71, alkaline phosphatase 89, serum lactate 10, albumin 2.4. Urinalysis notable for numerous red blood cells as well as white blood cells but negative nitrite and negative bacteria. IMAGING: Abdominal x-ray today shows numerous markedly distended small bowel loops with fecalized contents in the midabdomen. There is gaseous dilation of the transverse and sigmoid colon. This has not changed significantly since yesterday. Previous CT scan of the abdomen on 08/07/2019 was reviewed and shows cirrhosis with trace ascites, body wall edema, pulmonary edema and a large fat containing ventral hernia of the lower pelvis. ASSESSMENT/PLAN: A 49-year-old male with multiple medical problems and multiorgan failure, most notably with chronic liver disease secondary to alcohol abuse, now with abdominal distention, reported pain and tenderness, worsening leukocytosis, lactic acidosis, generalized decompensation. He is hypotensive on Levophed. The differential is quite wide for this current abdominal concern but my leading diagnosis would be ileus. He may have a partial small bowel obstruction or even a distal large bowel obstruction. Spontaneous bacterial peritonitis certainly could be of concern. CT scan has been ordered. I agree with that. We will follow along and continue NG tube to suction and broad-spectrum antibiotics. Overall his prognosis appears poor. He is certainly not a good surgical candidate. cc: Derek Villegas MD
[2019-08-18] MEDS: NEO-SYNEPHRINE 50 MG in NS 250 ML IV SCH ×5 (00:09→18:37)
[2019-08-18] MEDS: MERREM 500 MG in NS 50 ML IV SCH ×2 (00:09→14:15)
[2019-08-18] MEDS: NON-FORMULARY MED PR SCH ×4 (02:23→20:39)
[2019-08-18] MEDS ORDERED: MORPHINE IV ONE (02:59)
[2019-08-18] MEDS: LOPRESSOR IV SCH ×2 (03:20→12:36)
[2019-08-18] MEDS: SOLU-CORTEF IV SCH ×2 (03:20→14:20)
[2019-08-18] MEDS: DUONEB (A & A) INH SCH ×3 (03:25→15:54)
[2019-08-18] MEDS: LEVOPHED 8 MG in D5 1/2 NS 250 ML IV SCH ×4 (04:09→13:42)
[2019-08-18] MEDS ORDERED: ATIVAN IV ONE (05:18)
[2019-08-18] MEDS: SOLU-MEDROL IV SCH (05:33)
[2019-08-18] MEDS: PROTONIX IV SCH ×2 (05:33→19:06)
[2019-08-18 06:08] LABS: ALLEN TEST YES; BE -14.5 mmoll (-3.0-3.0); BLOOD TYPE ARTERIAL; HCO3-(ACT) 13.6 mmoll (20.0-26.0); O2HB 95.5 % (95.0-99.0); PCO2(98.6) 29 mmHg (35-45); PO2(98.6) 86 mmHg (60-100); SAMPLE BLOOD; SAO2 99.3 % (95.0-100.0); THB 9.6 g/dL (11.5-17.4); pH(98.6) 7.22 (7.35-7.45)
[2019-08-18 06:09] LABS: LACTATE > 20.00 mmoll (0.44-2.22); MODALITY BI PAP
[2019-08-18 06:10] LABS: BASO# 0.03 X1000 (0.0-0.2); BASO% 0.1 % (0.0-0.8); HEMATOCRIT 31.9 % (42.0-52.0); HEMOGLOBIN 9.1 g/dL (14.0-18.0); IMM GRAN# 0.09 X1000 (0.0-0.04); IMM GRAN% 0.4 % (0.0-0.5); LYMPH# 0.73 X1000 (1.2-3.4); LYMPH% 3.1 % (20.5-51.1); MCH 31.9 PG (27-31); MCHC 28.5 g/dL (33-37); MCV 111.9 FL (81-99); MONO# 4.64 X1000 (0.11-0.59); MONO% 19.9 % (1.7-9.3); NEUT# 17.84 X1000 (1.4-6.5); NEUT% 76.5 % (42.2-75.2); PLT 55 X1000 (130-400); RBC 2.85 XMIL (4.7-6.1); RDW 25.4 % (11.5-14.5); WBC 23.33 X1000 (4.8-10.8)
[2019-08-18 06:50] LABS: ALB/GLOB RATIO 0.8; ALBUMIN 2.1 g/dL (3.5-5.0); CALCIUM 8.4 mg/dL (8.8-10.2); CREATININE 3.4 mg/dL (0.7-1.2); POTASSIUM 4.6 mmol/L (3.5-5.1); TOTAL BILIRUBIN 14.41 mg/dL (0.20-1.00); TOTAL PROTEIN 4.9 g/dL (6.3-8.3)
[2019-08-18] MEDS: NS 1,000 ML IV SCH (07:59)
[2019-08-18] MEDS: ZYVOX 600 MG/D5W 600 MG/300 ML IVPB IV SCH (08:00)
[2019-08-18] MEDS: THIAMINE 100 MG in NS 50 ML IV SCH (08:00)
[2019-08-18] MEDS ORDERED: ALBUMIN 25% IV SCH (08:00)
[2019-08-18] MEDS ORDERED: NS 250 ML ONE (08:24)
[2019-08-18] MEDS: THERA M PLUS PO SCH ×2 (08:27→09:29)
[2019-08-18] MEDS ORDERED: MYCAMINE 100 MG in NS 100 ML IV SCH (08:30)
[2019-08-18] MEDS: MUCOMYST 20% INH SCH (08:38)
[2019-08-18] MEDS ORDERED: LACTULOSE MISC SCH (09:00)
--- NOTE | 2019-08-18 09:11 | Diag Imaging Result Doc PS360 ---
EXAM: CHEST-PORTABLE INDICATION: dyspnea TECHNIQUE: One view COMPARISON: 08/17/2019 FINDINGS: The NG tube is in stable position. Lung volumes remain low. No new consolidations are identified. There is no discrete pleural fluid collection or pneumothorax. The cardiac silhouette is stable. IMPRESSION: Stable low lung volumes. Electronically signed by Chris Mcpherson 08/18/2019 9:08 AM
[2019-08-18] MEDS ORDERED: VANCOMYCIN IV PER PHARMACY MISC SCH (09:15)
[2019-08-18] MEDS: XIFAXAN PO SCH ×2 (09:27→20:23)
--- NOTE | 2019-08-18 10:39 | PROGRESS NOTE ---
DATE: 08/18/2019 SUBJECTIVE: I have seen and examined Mr. Delacruz today. He continues to be in the Critical Care Unit. Per the nursing note, he has not had any urine output at all. Continues to be on the BiPAP, saturating anywhere between 92 to 99. The and the sister were at the bedside at the time of the encounter. OBJECTIVE: General: Mr. Delacruz is a 49-year-old gentleman. He is in bed currently under the BiPAP. HEENT: Mucosa is pink, positive for icterus. Neck: Supple. Chest: Air entry was bilaterally reduced, some transmitted sounds. There are also some crackles. Cardiovascular: Mildly tachycardic but no murmurs, no rubs, no gallops. Abdomen: Soft, is globally distended. Minimal tenderness everywhere palpating. Patient will grimace the face. He has a large umbilical hernia, which seems to be easily reducible. Extremities: About 4+ pedal edema all the way to the thigh. Neurologic: Patient is awake, seems to be jittering everywhere. He states some few words, but because of the BiPAP, he is almost incomprehensible. He will move his extremities to painful stimulation. I'S AND O'S: Urine output is 145. The patient is currently negative balance 22,823. LABORATORY DATA: WBC is down to 23.22, hemoglobin is 9.1, platelet count is down to 55. INR is 2.46 from yesterday. Chemistry is also reviewed. Creatinine is up to 3.4, BUN is 100, bicarb is 13 with a gap of 40. AST and ALT have gone even higher. Urine culture showing yeast. Repeat blood cultures from the shows at 48 hours no growth. The patient's ABG this morning shows pH 7.33, pCO2 is 29, PaO2 of 86. The lactate was more than 20. CURRENT MEDICATIONS: Include 1. Albumin 50 g IV every 24 hours. 2. Solu-Cortef 100 mg IV q.8. This was started yesterday. 3. Levaquin 250 every 24 hours, today is day 1. 4. Meropenem 500 every 12 hours, today is day 1. 5. Metoprolol 5 mg IV q.8. 6. Micafungin 100 mg q.24 was started today. 7. Lactulose enema p.r.n. 8. Norepinephrine drip. 9. Protonix 40 mg IV q.12. 10. Phenylephrine drip. 11. Zyvox 550 b.i.d. 12. Normal saline at 75 mL/hour. 13. Thiamine 100 mg every 24 hours. 14. Vancomycin per pharmacy protocol started today. 15. Vasopressin if needed. IMAGING STUDIES: A chest x-ray, which was done this morning, shows stable low lung volumes. CT scan of the abdomen and pelvis showed right pleural effusion and atelectasis versus pneumonia in the lower lobes. There is also anasarca and ascites. There is a partial obstruction of the distal small bowel versus ileus as a milk of calcium bile. ASSESSMENT: 1. Altered mental status, presumably multifactorial including metabolic, infectious and hepatic encephalopathy. 2. Acute hypoxemic respiratory failure. Patient is on BiPAP. O2 saturations have been fairly lower today. 3. Alcohol hepatitis on presentation. 4. Severe hyponatremia on presentation, improved. 5. Septic shock. Source of infection is currently unknown. We presume it is a combination of possibly bilateral pneumonia and an intra-abdominal infection. The patient was on Zosyn for almost 11 days. This with discontinued yesterday and we started new antimicrobial regimen. The patient has been evaluated by Infectious Disease. 6. Elevated liver enzymes, presumably from ischemic liver injury. 7. Acute kidney injury with worsening creatinine. Urine output documented yesterday was 145. We think this is multifactorial in etiology including possible acute tubular necrosis, prerenal which has led also to acute tubular necrosis and possible hepatorenal. 8. Large ventral umbilical hernia. 9. Cirrhosis of the liver secondary to alcohol abuse, complicated with ascites, fluid overload, thrombocytopenia, borderline splenomegaly and coagulopathy. Gastroenterology is on board. 10. Severe lactic acidosis with labs showing high anion gap metabolic acidosis and possibly some metabolic alkalosis as well. PLAN: So in general, I think Mr. Delacruz continues to be extremely critical. He is still full code. He is being evaluated by multiple subspecialties. Prognosis continues to be remarkably poor and I have notified the family. cc: Lavon Avina MD Critical time spent 1 hour. addendum: at about 7:10 pm I updated the family about Mr Delacruz critical condition at the waiting room. He is now intubated and on 4 different vasopressors. He is extremely critical and will likely not survive the night. Dr Andrade was with me. [facility]
[2019-08-18] MEDS: LEVAQUIN 250 MG/D5W 250 MG/50 ML IVPB IV SCH (10:56)
[2019-08-18 11:54] LABS: ALLEN TEST YES; BE -17.2 mmoll (-3.0-3.0); BLOOD TYPE ARTERIAL; HCO3-(ACT) 11.5 mmoll (20.0-26.0); METHB 0.7 % (0.0-1.5); O2(CT) 10.2 mL/dL (15.0-23.0); O2HB 95.6 % (95.0-99.0); PCO2(98.6) 33 mmHg (35-45); PO2(98.6) 84 mmHg (60-100); SAMPLE BLOOD; SAO2 99.4 % (95.0-100.0); THB 7.5 g/dL (11.5-17.4)
[2019-08-18 11:58] LABS: pH(98.6) 7.12 (7.35-7.45)
[2019-08-18 11:59] LABS: LACTATE > 20.00 mmoll (0.44-2.22); MODALITY BI PAP
[2019-08-18] MEDS ORDERED: VANCOMYCIN 2,000 MG in NS 500 ML IV SCH (12:00)
--- NOTE | 2019-08-18 12:05 | INFECTIOUS DISEASE CONSULT REP ---
DATE: 08/18/2019 CONCLUSION: The patient appears to be in a septic condition, the exact etiology of which is uncertain to me. He does have cirrhosis of the liver and possibly he has spontaneous bacterial peritonitis. However, on the CT scan, there was only a small amount of ascites. Meningitis is possible. RECOMMENDATIONS: I agree with treating the patient with broad-spectrum antimicrobial therapy. I have discontinued Zyvox because the patient's platelets are get are so low. Instead, I have ordered IV vancomycin to be dosed by the pharmacy. To do a spinal tap would be very difficult and the patient already is on broad spectrum antibiotics. DISCUSSION: The patient and his family are unable to provide a history. The information I obtained was from the computer. The patient was seen at [facility]. He had dyspnea, anorexia, and chronic leg edema. The patient had a ventral large ventral hernia. His white count is up to 23,330, the hemoglobin is 9.1, platelet count is 55,000. Blood gases show a pH of 7.22, a PO2 of 86, a pCO2 of 29. Chest x-ray shows bibasilar atelectasis. Creatinine is 3.4, GFR is 19, AST is 323, bilirubin is 14.41. Urine is growing yeast. Blood cultures are negative. Stool for Clostridium difficile is negative. CT scan of the abdomen and pelvis shows cirrhosis with trace ascites and a large ventral hernia. PAST MEDICAL HISTORY: Positive for hyperlipidemia, gout, gastroesophageal reflux disease, morbid obesity, alcoholism, cirrhosis of the liver, and umbilical hernia. PAST SURGICAL HISTORY: Positive for nasal surgery and testicular surgery. ALLERGIES: No known drug allergies. HOME MEDICATIONS: None. SOCIAL HISTORY: The patient is . He drinks 10 to 12 beers per day and has done so for 20 years. He does not use illicit drugs. He does not use marijuana and he also does not vape. FAMILY HISTORY: Only positive for hyperlipidemia. PHYSICAL EXAMINATION: Vital Signs: Temperature is 100 degrees pulse 109 respirations 31 blood pressure is 89/53. The patient is 5 feet 4 inches tall, weighs 345 pounds. General: This is an ill-appearing middle-aged male. He is very lethargic. Head/Eyes/Ears/Nose/Throat: No drainage noted from the nose or ears. Neck: The neck was stiff. Lungs: Distant breath sounds. I did not hear any rales or wheezes. Cardiovascular: Heart rate is regular. The heart tones are distant. Abdomen: The abdomen shows diffuse protuberances. In the lower part of the abdomen there is a large ventral hernia. Neurologic: The patient is obtunded. He did not respond to verbal stimuli. There was no tremor. Integumentary: No rash. Extremities: Both legs were edematous. Thank you for the consult. cc: Matt Garcia MD MTDD
[2019-08-18] MEDS ORDERED: NS 1,000 ML IV ONE ×4 (12:34→13:53)
[2019-08-18] MEDS ORDERED: DIPRIVAN 1% 1,000 MG/100 ML BOTTLE ONE (12:45)
[2019-08-18] MEDS ORDERED: DIPRIVAN 1% 1,000 MG/100 ML BOTTLE IV SCH (12:45)
[2019-08-18] MEDS: PITRESSIN 40 UNIT in NS 100 ML IV SCH ×2 (13:01→19:47)
--- NOTE | 2019-08-18 13:02 | GASTROENTEROLOGY PROGRESS NOTE ---
DATE: 08/18/2019 SUBJECTIVE: Records from the weekend were reviewed. The patient was transferred back into the intensive care unit. He is currently on BiPAP machine. At the time of our visit, he was not responding. He has had worsening ABG results with severe lactic acidosis. He has been seen by Infectious Disease, and his antibiotics have been changed. OBJECTIVE: Vital Signs: Temperature 100.5 degrees, pulse 111, respirations 31, blood pressure 81/50. General: The patient is not alert or oriented. Unresponsive at the present time. He has BiPAP in place. Abdomen: Distended. Very hypoactive bowel sounds. NG tube to low intermittent suction with brownish color contents. The patient has a large abdominal hernia. Dr. Bahena was able to reduce the hernia. There was no noted abdominal pain with reduction. Genitourinary: The patient has had low urine output. LABORATORY DATA: Hematology: WBC 23.33, hemoglobin 9.1, hematocrit 31.9, MCV 111.9, platelets 55,000. Chemistry: Sodium 141, potassium 4.6, chloride 88, CO2 of 13, BUN 100, creatinine 3.4, glucose 48. Total bilirubin 14.41, AST 323, ALT 185, total protein 4.9, albumin 2.1. ASSESSMENT AND PLAN: 1. Encephalopathy. The patient has had a lactulose enema. 2. Respiratory failure. The patient is now on bilevel positive airway pressure. 3. Sepsis shock with elevated white count. The patient has been seen by Infectious Disease. His antibiotics have been changed. 4. Alcoholic hepatitis with elevated liver enzymes, possible ischemic liver injury on top of alcoholic hepatitis. 5. Acute kidney injury. 6. Large ventral umbilical hernia that is currently reducible. 7. Cirrhosis of the liver related to alcoholic liver disease. Continue current medications. The patient has also been seen by Dr. Bahena. Dr. Bahena has spoken with the family, with translation help from phone translation. Continue current management and recommendations from other medical team. Unfortunately, the patient's prognosis is poor. Will continue to follow, and further plans will be made according to his progress. As noted, the patient was also seen and examined by Dr. Bahena. Dictated by ORQUIDEA Toussaint for Mason Bahena MD cc: ORQUIDEA Raygoza MD
[2019-08-18] MEDS ORDERED: DIPRIVAN 1% ONE (13:15)
[2019-08-18] MEDS ORDERED: XYLOCAINE-MPF 2% ONE (13:15)
[2019-08-18] MEDS ORDERED: QUELICIN (DOSE) ONE (13:15)
--- NOTE | 2019-08-18 13:26 | Diag Imaging Result Doc PS360 ---
EXAM: CHEST-PORTABLE INDICATION: ET tube placement TECHNIQUE: One view COMPARISON: 08/18/2019 FINDINGS: The NG tube is in stable position. There is a newly placed right PICC line. The tip projecting over the lower SVC in the expected position. There is also a newly placed ET tube. The tip of the ET tube projects just superior to the minna. Retraction of 2 to 3 cm is suggested for more optimal position. Otherwise, the chest is stable. IMPRESSION: 1.Low lying ET tube that is just superior to the minna. Consider retracting 2 to 3 cm. 2.Placed PICC line as described. Electronically signed by Chris Mcpherson 08/18/2019 1:24 PM
--- NOTE | 2019-08-18 14:01 | PROVIDER PROGRESS NOTE ---
Progress Note Subjective: unable to follow any commands. He is flinching on verbal and tactile stimuli. Objective: temperature 100.8, pulse 109, respirations 31, blood pressure 118/96, 02 sat 99% on 60% bipap General: Morbidly obese male lying in bed in no acute distress. HEENT: normocephalic, atraumatic, conjunctiva jaundice, pupils equal and s luggishly reactive. Mucous membranes dry. Skin: Jaundice. Skin warm and dry. Neck: supple, JVD unobserved due to body habitus Cardiovascular: distant. S1S2, tachycardic rate and rhythm. No murmur or gallops. Respiratory: expiratory wheezing and rales. Abdomen: obese, slightly firm, nontender, protruding. Large umbilical hernia that has pitting edema. Bowel sounds hypoactive. : non-inspected, reed in place with hansel urine. Extremities: 2+ pitting edema. Neurological: unable to assess. Does not follow commands but is moaning to tactile stimuli. Labs: WBC 23.33, hemoglobin 9.1, hematocrit 31.9, platelet count 55 sodium 141, potassium 4.6, chloride 88, carbon dioxide 13, anion gap 40, BUN 100, creatinine 3.4, albumin 2.1. Impression: Acute kidney injury. Prerenal azotemia due to volume depletion likely. Albumin 2.1. We will give three doses of Albumin 50g and monitor for response. Blood pressure. Hypotensive. Levophed and karen in place. Fluid volume. Expanded. Albumin ordered. Anemia. Stable. Metabolic alkalosis with anion gap acidosis. AG is fully attributable to lactate. Focus on management of sepsis, evaluation for ischemia. rg Ambulation. Unable to evaluate due to cognitive status. Medication review. No changes. rg
--- NOTE | 2019-08-18 14:11 | EKG Report ---
Test Performed on : 08/17/2019 6:12:28 PM Test Reason : ARRHYTHMIA Blood Pressure : / mmHG Vent. Rate : 150 BPM Atrial Rate : 208 BPM P-R Int : 000 ms QRS Dur : 136 ms QT Int : 302 ms P-R-T Axes : 000 037 045 degrees QTc Int : 477 ms Wide QRS tachycardia. Right bundle branch block Abnormal ECG No previous ECGs available Confirmed by Eileen Olvera MD ([id number]) on 08/18/2019 4:15:05 PM
[2019-08-18] MEDS ORDERED: 1/2 NS 1,000 ML IV ONE (15:44)
[2019-08-18] MEDS ORDERED: EPINEPHRINE 8 MG in D5W 250 ML IV SCH (15:45)
--- NOTE | 2019-08-18 16:18 | Diag Imaging Result Doc PS360 ---
CHEST-PORTABLE - 08/18/2019 3:56 PM INDICATION: ET tube placement COMPARISON: 1:08 PM FINDINGS: The endotracheal tube has been adjusted. The tip is in good position projecting over about T4. Stable critically low lung volumes. Stable right PICC line. Stable nasogastric tube. IMPRESSION: Endotracheal tube adjusted and is in good position. Electronically signed by Stanley Saenz 08/18/2019 4:15 PM
[2019-08-18] MEDS: 1/2 NS 1,000 ML IV ONE (16:27)
[2019-08-18 18:00] LABS: ALLEN TEST YES; BLOOD TYPE ARTERIAL; HCO3-(ACT) 10.1 mmoll (20.0-26.0); METHB 0.5 % (0.0-1.5); O2(CT) 8.8 mL/dL (15.0-23.0); O2HB 95.5 % (95.0-99.0); PCO2(98.6) 40 mmHg (35-45); PO2(98.6) 82 mmHg (60-100); SAMPLE BLOOD; SAO2 98.5 % (95.0-100.0); SRATE 20 BPM; THB 6.4 g/dL (11.5-17.4); TVOL 500 mL
[2019-08-18 18:05] LABS: LACTATE > 20.00 mmoll (0.44-2.22); MODALITY VENTILATOR; pH(98.6) 7.02 (7.35-7.45)
[2019-08-18 21:00] VITALS: BP 83/61
--- NOTE | 2019-08-18 21:19 | GENERAL SURGERY PROGRESS NOTE ---
DATE: 08/18/2019 SUBJECTIVE: The patient remains in the intensive care unit and has recently been intubated, has had worsening lactic acidosis and ABG results. He also has worsening hypotension, now requiring 3 pressors. He is maxed out on 2. OBJECTIVE: Vital signs: Temperature a 100.5 degrees, pulse is 111, blood pressure 81/50, O2 saturation 96%. General: Unresponsive male on a ventilator. CV: Tachycardic and regular. Respiratory: Coarse bilateral breath sounds. GI: Obese, soft. There is a large ventral hernia with fluid or ascites in, but no bowel. It is reducible. LABORATORY: White blood cell count 23,000, hemoglobin 9.1, hematocrit 31.9, platelet count 55,000. INR 2.5. PH 7.1, pCO2 of 33, PaO2 of 84, bicarb 11, base deficit -17. Lactate greater than 20. Electrolytes reviewed and notable for BUN 100, creatinine 3.4, total bilirubin 14, AST 323, ALT 185, alkaline phosphatase 59. IMAGING: His abdominal pelvis CT scan from yesterday was reviewed, which shows diffuse dilation of small bowel loops without any transition point. There is considerable gas in the transverse colon. There is a fat containing and ascites containing umbilical hernia. There is no free air. There is ascites. There is calcified bile in the gallbladder and pneumonia versus pleural effusion and atelectasis. ASSESSMENT AND PLAN: A 49-year-old male with multiorgan failure, encephalopathy, respiratory failure, septic shock, alcoholic hepatitis, acute kidney injury, now becoming anuric and underlying cirrhosis of the liver. He has profound acidemia. Etiology is probably multifactorial. Certainly bowel ischemia is a concern. Unfortunately, he is too unstable for operative exploration. We will continue to follow along. If vascular access for dialysis is needed, please notify us. cc: Derek Villegas MD
[2019-08-19] MEDS ORDERED: EPINEPHRINE SYRINGE IV ONE (02:11)
[2019-08-19] MEDS ORDERED: ATROPINE SYRINGE IV ONE (02:11)
--- NOTE | 2019-08-19 08:02 | PULMONOLOGY PROGRESS NOTE ---
DATE: 08/18/2019 INTERIM HISTORY: The patient was seen early this morning. He has been undergoing volume resuscitation for ongoing shock. He has required multiple vasopressors with the addition of epinephrine this evening. He is continuing to have ongoing lactic acidosis with a lactate of greater than 20. OBJECTIVE: General: The patient was intubated. He is now unresponsive. Vital Signs: Blood pressure 83/61, heart rate 101, respiratory rate 23, oxygen saturation 98%. HEENT: Pupils are equal, but poorly responsive. Sclerae are icteric. Oropharynx appears clear. Neck: Supple. Chest: Reveals shallow breath sounds bilaterally without wheezing or rhonchi. Cardiac: Increased rate, distant heart sounds. Abdomen: Obese and protuberant, protuberant. He has a large ventral hernia which can be reduced. Bowel sounds are not present. He has increased tympany with possible fluid wave. Extremities: Cool to the touch. LABORATORIES: Chest x-ray reveals endotracheal tube in good position. Most recent arterial blood gas this evening reveals a pH 7.02, pCO2 of 40, PO2 of 82 with a lactate greater than 20. White blood count 23,000, hemoglobin 9.1, platelet count 55,000. Blood sugar this morning 48. IMPRESSION: A 49-year-old with: 1. Acute hypoxemic respiratory failure. 2. Severe lactic acidosis which has been persistent. 3. Acute liver failure from alcoholic hepatitis. 4. Morbid obesity with a body mass index greater than 50. 5. Altered mental status. 6. Hemodynamic shock. 7. Acute renal failure. DISCUSSION: A 49-year-old with problems outlined above. He now has multiorgan dysfunction syndrome. He has received greater than 6 liters of fluid through the afternoon and is currently on multiple vasopressors. He remains in shock. His prognosis for survival is extremely poor. PLAN: 1. Continue full ventilatory support. 2. Continue broad-spectrum antibiotics. 3. Continue vasopressors. 4. Prognosis is poor. cc: Leonel Andrade MD
--- NOTE | 2019-08-20 08:44 | DISCHARGE SUMMARY ---
ADMISSION DATE: 08/04/2019 DISCHARGE DATE: 08/18/2019 DATE OF : 08/18/2019. TIME OF : 2153. DIAGNOSES AT TIME OF ADMISSION: 1. Acute alcohol hepatitis. 2. Severe hyponatremia. 3. Elevated ammonia level. 4. Clinical dehydration with third-spacing. 5. Anemia. 6. Alcohol use and abuse. DIAGNOSES AT TIME OF : 1. Multiorgan failure. 2. Refractory shock, presumably septic. 3. Severe lactic acidosis. 4. Acute hypoxemic respiratory failure. 5. Altered mental status, presumably multifactorial etiology, including metabolic, infectious, and hepatic encephalopathies. 6. Ischemic liver injury. 7. Acute kidney injury, presumably a combination of prerenal, acute tubular necrosis, and possible hepatorenal. 8. Large ventral umbilical hernia. 9. Alcohol-induced cirrhosis of the liver complicated with ascites, thrombocytopenia, borderline splenomegaly, and coagulopathy. 10. Severe alcohol use and abuse prior to hospitalization. 11. Alcohol hepatitis. PRESENTING COMPLAINT: Altered mental status. HISTORY OF PRESENT COMPLAINT: Mr. Delacruz is a 49-year-old, gentleman, who initially presented to [place] because of some shortness of breath, poor appetite for 2 weeks. The patient drinks 10 beers per day for the past 20 years. He has been noted to be jaundiced. Upon presenting to the emergency room in [place], he was evaluated and was found to be severely hyponatremic with serum sodium of 108. Liver enzymes were elevated. Albumin was low. He was coagulopathic. He was transferred from [place] to [facility] for higher level of care. HOSPITAL COURSE: Mr. Delacruz was initially admitted to ICU. He was started on broad-spectrum IV antibiotics. Multiple specialties were consulted, including Nephrology and Pulmonary Medicine initially. Mr. Delacruz seems to have progressively improved over the hospital cause, so he was transferred to the medical floor. However, a day or two on the medical floor, he started getting more confused, so he was transferred back to the Critical Care Unit. At that time, he was found to have also acute kidney injury. He became severely hypotensive. Multiple imaging studies were done, including a CT scan of the abdomen and pelvis, which was done on 08/17/2019 and showed right pleural effusion, atelectasis versus pneumonia. There was anasarca, questionable partial obstruction of the distal small bowel versus ileus. Mr. Delacruz was on multiple broad-spectrum IV antibiotics, was started on two different pressors. At the time of , he was actually on four different pressors. He was also ultimately intubated. Infectious Disease was consulted. The patient continued to be seen by Nephrology and Pulmonary Medicine. His condition continued to worsen. He went into multiorgan failure, refractory shock, and despite the best standard of care, Mr. Delacruz could not survive his disease process. He was noted to be in ventricular tachycardia and asystole. Geneva donnelly was called on the night of 08/18/2019 at 2140. At 2154, it is documented that there was asystole on the monitor. The patient was pronounced at [address] Castaneda. Family members were notified. cc: Lavon Avina MD
== END 2019-08-18 21:51 | disposition expired | DRG 432 ==
LOC: P.ED 22:27 → ICU 08-05 01:58 → SUATTDRO 08-05 01:58 → 3N 08-14 12:47 → ICU 08-17 13:29
PROVIDERS: ATTEND Internal Medicine